=== PATIENT | male | born 1965 | race Caucasian/White ===

== ENCOUNTER → 2016-07-18 | Outpatient (CLI) | payer OTHER ==
[2016-03-06 22:57] VITALS: BP 184/86
--- NOTE | 2016-07-18 12:25 | MRI ---
STUDY: MRI OF THE BRAIN WITHOUT GADOLINIUM HISTORY: Cerebral infarction, TIA. Dizziness and right-sided facial numbness. Technique: Multiplanar multi-sequence MRI of the brain was obtained utilizing standard departmental protocol. Sagittal and axial T1, axial T2, FLAIR, diffusion (DWI/ADC) images through the brain were performed. Comparison: Brain MRI dated February 25, 2013. Findings: The sulci, cisterns and ventricles are prominent consistent with diffuse volume loss. There are conf luent and scattered foci of T2 prolongation in the periventricular and subcortical white matter of b oth hemispheres. This is a nonspecific finding which likely represents microangiopathic change in a patient of this age. There is no evidence of acute territorial infarction, hemorrhage, mass, mass effect, or midline shif t. There are no abnormal intra-axial or extra-axial fluid collections. The major intracranial vascular flow voids appear intact. The left vertebral artery appears dominant . IMPRESSION: 1. No evidence of acute intracranial abnormality. 2. Nonspecific white matter change and volume loss. Reported By:
== END ==
LOC: RAD 10:29
PROVIDERS: ATTEND Internal Medicine
DX: I63.8 Other cerebral infarction (principal); R42 Dizziness and giddiness; G45.8 Other transient cerebral ischemic attacks and related syndromes
CPT/HCPCS: 70551

== ENCOUNTER 2016-12-30 05:42 | Emergency (ER) | payer OTHER ==
[2016-12-30 05:50] VITALS: BP 180/94; BMI 39.4
--- NOTE | 2016-12-30 06:31 | RAD ---
Two views of the left knee Indication: Left knee pain after fall with swelling Findings: Posttraumatic deformities of the proximal tibia and fibula are noted without hardware comp lication identified within the lateral fixation plate and screw construct within the proximal tibia. Chronic, healed fracture deformity of the proximal left fibula. There is mild soft tissue swelling anterior to the knee suggesting contusion. There is no acute fracture, dislocation or suprapatellar joint effusion. There is mild tricompartmental osteoarthrosis. Calcified atherosclerotic disease is noted within the SFA and popliteal artery and tibioperoneal trunk. Impression: Mild tricompartmental osteoarthrosis without acute fracture, dislocation or joint effusi on. Small prepatellar soft tissue swelling/contusion. Reported By:
--- NOTE | 2016-12-30 06:40 | RAD ---
Two views of the left lower leg Indication: Leg pain after fall. Findings: No acute fracture or dislocation within the left foreleg. Internally fixated healed fracture of the proximal left tibia is noted without evidence of hardware c omplication or failure. There is also a healed fracture deformity of the proximal fibular diaphysis without internal fixation. Calcified atherosclerotic disease of the SFA, popliteal artery and tibiop eroneal trunk. Left knee and ankle joint alignment are grossly intact. No localizing soft tissue sw elling. Impression: No acute radiographic abnormality within the left foreleg. Reported By:
--- NOTE | 2016-12-30 06:40 | DR.GENAD ---
HPI - PCP Primary Care Physician: gerber - Complaint/Symptoms Chief Complaint Doctors Comments: Patient with repaired left left lower extremity with kaci placement. He fell today on the left knee with possible damage to the patella. Chief Complaint:: PT FELL ON LEFT KNEE - Source History Provided: Patient - Mode of Arrival Mode of Arrival: Wheelchair - Timing Onset of Chief Complaint: 12/30/16 PMH - PMH Past Medical History: Yes Past Medical History: Coronary Artery Disease, Diabetes, Hypertension, Hypothyroidism Past Surgical History: Yes Surgical History: Abdominal Surgery, CABG/Valve Surgery, Ortho Surgery - Family History History of Family Medical Conditions: Yes Family Medical History: Diabetes Mellitus, [place], Coronary Artery Disease, Hypertension - Social History Does patient currently use any type of tobacco product: No Have you used tobacco products in the last 12 months: No Type of Tobacco Use: Cigarettes Does any household member use tobacco: No Alcohol Use: None Do you use any recreational Drugs:: No Lives With: Family Lives Where: Home - infectious screening In the last 2 months have you had wt loss of >10#?: NO Have you had fever, night sweats or hemotysis?: No Have you traveled outside the country in the last 6 months?: No Isolation: Standard ROS - Review of Systems Constitutional: negative: Diaphoresis Eyes: No Symptoms Reported ENTM: No Symptoms Reported Respiratoy: No Symptoms Reported Cardiovascular: No Symptoms Reported Gastrointestinal/Abdominal: No Symptoms Reported Genitourinary: No Symptoms Reported Neurological: No Symptoms Reported Musculoskeletal: No Symptoms Reported Integumentary: No Symptoms Reported Hematologic/Lymphatic: No Symptoms Reported Endocrine: No Symptoms Reported Psychiatric: No Symptoms Reported All Other Systems: Reviewed and Negative PE - Vital Signs Vitals: Temperature 98.2 F Pulse Rate 69 Respiratory Rate 16 Blood Pressure [Right Arm] 184/86 Blood Pressure [Left Arm] 127/58 Blood Pressure 180/94 O2 Sat by Pulse Oximetry 100 - General Limitations: No Limitations General Appearance: Alert, In No Apparent Distress - Head Head Exam: Normal Inspection, Atraumatic - Eyes Eye exam: Normal Appearance, PERRL, EOMI - ENT ENT Exam: Normal Exam External Ear Exam: Normal External Inspection TM/Canal Exam: Bilateral Normal Nose Exam: Normal Nose Exam Mouth Exam: Normal Inspection Throat Exam: Normal Inspection - Neck Neck Exam: Normal Inspection, Full ROM - Chest Chest Inspection: Normal Inspection - Respiratory Respiratory Exam: Normal Lung Sounds Bilat Respiratory Exam: Bilateral Clear to Auscultation - Cardiovascular Cardiovascular Exam: Regular Rate, Normal Rhythm - Abdominal Exam Abdominal Exam: Normal Inspection, Normal Bowel Sounds Abdominal Tenderness: negative: RUQ, RLQ, LUQ, LLQ, Epigastrium, Suprapubic, Diffuse, Mild, Moderate, Severe, Other - Extremities Extremities Exam: Other (left patella with area of excoriation minimal edema) - Back Back Exam: Normal Inspection - Neurologic Neurological Exam: Alert, Oriented X3, CN II-XII Intact - Psychiatric Psychiatric Exam: Normal Affect - Skin Skin Exam: Warm, Dry, Intact ROR - XRAY XRAY Interpreted by: Radiologist (Left Knee: Mild tricompartmental osteoarthrosis without acute fracture, dislocation or joint effusion, small patella contusion) - Diagnosis Discharge Problem: Contusion of left patella Qualifiers: Encounter type: initial encounter Qualified Code(s): S80.02XA - Contusion of left knee, initial encounter - Discharge Plan Condition: Stable - Follow ups/Referrals Follow ups/Referrals: Buzz Lamar [Primary Care Provider] - 3 days - Instructions
== END 2016-12-30 07:25 | disposition home or self-care (01) ==
LOC: ER 05:42
DX: S80.02XA Contusion of left knee, initial encounter (principal); W19.XXXA Unspecified fall, initial encounter; Y92.9 Unspecified place or not applicable
CPT/HCPCS: 73560; 73590; 99282

== ENCOUNTER → 2017-03-20 | Outpatient (CLI) | payer OTHER ==
[2017-03-20 09:00] LABS: BASOPHILS % (AUTO) 0.2 % (0.2-1.0); EOSINOPHILS # (AUTO) 0.8 x10^3/uL (0.0-0.2); EOSINOPHILS % (AUTO) 7.7 % (0.9-2.9); HEMATOCRIT 34.1 % (42.0-54.0); HEMOGLOBIN 12.1 g/dL (13.5-18.0); LYMPHOCYTES # (AUTO) 2.7 X10^3/uL (1.3-2.9); LYMPHOCYTES % (AUTO) 25.8 % (21.0-51.0); MEAN CORPUSCULAR HEMOGLOBIN 30.1 pg (27.0-34.0); MEAN CORPUSCULAR HGB CONC 35.5 g/dL (33.0-35.0); MEAN CORPUSCULAR VOLUME 84.9 fL (80.0-100.0); MEAN PLATELET VOLUME 9.1 fL (7.4-11.0); MONOCYTES % (AUTO) 10.1 % (0.0-13.0); NEUTROPHILS # (AUTO) 5.8 x10^3/uL (2.2-4.8); NEUTROPHILS % (AUTO) 56.2 % (42.0-75.0); PLATELET COUNT 264 X10^3/uL (150.0-450.0); RED BLOOD COUNT 4.01 X10^6/uL (4.7-6.0); RED CELL DISTRIBUTION WIDTH 12.9 % (11.6-16.5); WHITE BLOOD COUNT 10.4 X10^3/uL (3.6-10.0)
[2017-03-20 09:20] LABS: HEMOGLOBIN A1C 7.1 % (4.5-6.2)
[2017-03-20 09:26] LABS: ALANINE AMINOTRANSFERASE 26 Units/L (12-78); ALBUMIN 3.7 g/dL (3.4-5.0); ALKALINE PHOSPHATASE 45 Units/L (46-116); ASPARTATE AMINO TRANSFERASE 12 Units/L (15-37); BLOOD UREA NITROGEN 14 mg/dL (7-18); CALCIUM 8.7 mg/dL (8.5-10.1); CARBON DIOXIDE 26.8 mmol/L (21-32); CHLORIDE 103 mmol/L (98-107); CHOL/HDL RATIO 4.6 (0.0-5.0); CHOLESTEROL 156 mg/dL (0-200); COR NA(FOR HYPERGLY) 142 mmol/L (136-145); CREATININE 1.36 mg/dL (0.70-1.30); HDL CHOLESTEROL 34 mg/dL (40-60); SODIUM 140 mmol/L (136-145); T4 (THYROXINE) 6.1 ug/dL (4.7-13.3); TOTAL PROTEIN 7.3 g/dL (6.4-8.2); TRIGLYCERIDES 183 mg/dL (0-150); TSH (3RD GENERATION) 5.116 uIU/mL (0.358-3.74); eGFR BLACK RACES > 60 (>60); eGFR NON BLACK RACES 58 (>60)
[2017-03-20 09:32] LABS: TOTAL PSA 0.81 ng/mL (0.13-4.0)
== END ==
LOC: LAB 08:32
PROVIDERS: ATTEND Internal Medicine
DX: Z12.5 Encounter for screening for malignant neoplasm of prostate (principal); E11.9 Type 2 diabetes mellitus without complications; I10 Essential (primary) hypertension
CPT/HCPCS: 36415; 80053; 80061; 83036; 84153; 84436; 84443; 85025

== ENCOUNTER 2023-03-29 20:13 | Inpatient (IN) ==
[2023-03-29 20:34] VITALS: BMI 27.6
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
--- NOTE | 2023-03-29 20:56 | EKG ---
Test Reason : Shortness of Breath. Blood Pressure : */* mmHG Vent. Rate : 71 BPM Atrial Rate : 71 BPM P-R Int : 196 ms QRS Dur : 98 ms QT Int : 414 ms P-R-T Axes : 21 -21 171 degrees QTc Int : 449 ms Normal sinus rhythm Possible Left atrial enlargement Incomplete right bundle branch block Minimal voltage criteria for LVH, may be normal variant ( [place] product ) Marked ST abnormality, possible lateral subendocardial injury Abnormal ECG No previous ECGs available Confirmed by Jossue Barba ([id number]) on 03/31/2023 9:04:25 AM Referred By: Confirmed By: Jossue Barba
[2023-03-29 21:01] LABS: BASOPHILS # (AUTO) 0.1 X10^3/uL (0.0-0.1); BASOPHILS % (AUTO) 1.1 % (0.2-1.0); EOSINOPHILS # (AUTO) 0.4 x10^3/uL (0.0-0.2); EOSINOPHILS % (AUTO) 3.9 % (0.9-2.9); HEMATOCRIT 34.8 % (42.0-54.0); HEMOGLOBIN 11.3 g/dL (13.5-18.0); LYMPHOCYTES # (AUTO) 1.3 X10^3/uL (1.3-2.9); MEAN CORPUSCULAR HEMOGLOBIN 27.9 pg (27.0-34.0); MEAN CORPUSCULAR HGB CONC 32.5 g/dL (33.0-35.0); MONOCYTES # (AUTO) 0.9 x10^3/uL (0.3-0.8); MONOCYTES % (AUTO) 10.1 % (0.0-13.0); NEUTROPHILS # (AUTO) 6.3 x10^3/uL (2.2-4.8); NEUTROPHILS % (AUTO) 69.9 % (42.0-75.0); PLATELET COUNT 211 X10^3/uL (150.0-450.0); RED BLOOD COUNT 4.04 X10^6/uL (4.7-6.0); RED CELL DISTRIBUTION WIDTH 13.5 % (11.6-16.5)
--- NOTE | 2023-03-29 21:13 | CT ---
EXAM:BRAIN W/O CONHISTORY:C/O SHORTNESS OF BREATH AND WEAKNESS X 3-4 DAYS. PT NOTED TO HAVE SLURRED SPEECH, LEFT EYE AND MOUTH DROOPING, AND LEFT ARM DRIFT. ;COMPARISON:NoneTECHNIQUE:CT scan of the brain was obtained from skull base to vertex without contrast. Dose reduction techniques were utilized.Contrast: NoneFINDINGS:There is diffuse cerebral and cerebellar volume loss. There are focal lucencies to the right thalamus. These represent age-indeterminate lacunar infarcts. There is moderate to extensive periventricular, supraventricular and subcortical hypodensity in the hemispheric white matter. There are cavitated lacunar infarcts of the right thalamus capsular region and left putamen. There is ex vacuo dilatation of the left temporal horn. While these are nonspecific findings, this most likely represents microvascular ischemic disease changes. There is no evidence of intracranial hemorrhage or mass-effect. No extra-axial fluid collections are identified.There are extensive atherosclerotic changes noted of the cavernous carotid arteriesand distal vertebral arteries.Skull base and calvarium are intact. Paranasal sinuses are clear.IMPRESSION:Age-indeterminate right thalamic infarcts. If acute ischemia and infarction is of concern a better study of choice is an MRI with diffusion-weighted imaging. Diffuse generalized cerebral atrophy. Extensive microvascular ischemic disease changes. Chronic appearing cavitated lacunar infarcts of the right thalamus capsular region.THIS IS AN ELECTRONICALLY VERIFIED FINAL REPORT03/29/2023 9:09 PM - Electronically signed by Kavita Govea MD
[2023-03-29 21:27] LABS: ALANINE AMINOTRANSFERASE 27 Units/L (12-78); ALBUMIN 3.7 g/dL (3.4-5.0); ALKALINE PHOSPHATASE 45 Units/L (46-116); ASPARTATE AMINO TRANSFERASE 27 Units/L (15-37); BLOOD UREA NITROGEN 33 mg/dL (7-18); CALCIUM 8.4 mg/dL (8.5-10.1); CARBON DIOXIDE 24.7 mmol/L (21-32); CHLORIDE 101 mmol/L (98-107); CREATINE KINASE 67 Units/L (39-308); CREATININE 2.32 mg/dL (0.70-1.30); GLUCOSE 104 mg/dL (65-99); POTASSIUM 4.5 mmol/L (3.5-5.1); SODIUM 135 mmol/L (136-145); TOTAL PROTEIN 7.1 g/dL (6.4-8.2); eGFR NON BLACK RACES 31 (>60)
[2023-03-29 22:26] LABS: BILIRUBIN,URINE NEGATIVE (NEGATIVE); BLOOD/HEMOGLOBIN,URINE 1+ (NEGATIVE); GLUCOSE, URINE NEGATIVE (NEGATIVE); KETONES,URINE NEGATIVE (NEGATIVE); LEUKOCYTE ESTERASE ,URINE NEGATIVE (NEGATIVE); NITRITES,URINE NEGATIVE (NEGATIVE); PROTEIN,URINE 3+ (NEGATIVE); UROBILINOGEN,URINE 1+ (NORMAL)
[2023-03-29 22:29] LABS: APPEARANCE,URINE CLEAR (CLEAR); COLOR,URINE DARK YELLOW (YELLOW)
[2023-03-29 22:37] LABS: BACTERIA,URINE 1+ /HPF (NEGATIVE); COARSE GRANULAR CASTS,URINE FEW /HPF (NEGATIVE); HYALINE CASTS, URINE MODERATE /LPF (NEGATIVE); SQUAMOUS EPITHELIAL CELL,UR FEW /HPF (NEGATIVE)
--- NOTE | 2023-03-29 22:52 | EKG ---
Test Reason : ELEVATED TROPONIN Blood Pressure : */* mmHG Vent. Rate : 76 BPM Atrial Rate : 76 BPM P-R Int : 192 ms QRS Dur : 98 ms QT Int : 406 ms P-R-T Axes : 34 -30 184 degrees QTc Int : 456 ms Normal sinus rhythm Left axis deviation Minimal voltage criteria for LVH, may be normal variant ( [place] product ) Abnormal ECG When compared with ECG of 29-MAR-2023 20:52, (Unconfirmed) No significant change was found Confirmed by Jossue Barba ([id number]) on 03/31/2023 9:04:18 AM Referred By: Confirmed By: Jossue Barba
[2023-03-29] MEDS ORDERED: LASIX IVP ONE ×2 (23:22→23:23)
[2023-03-29 23:53] LABS: BILIRUBIN,URINE NEGATIVE (NEGATIVE); BLOOD/HEMOGLOBIN,URINE NEGATIVE (NEGATIVE); GLUCOSE, URINE NEGATIVE (NEGATIVE); KETONES,URINE NEGATIVE (NEGATIVE); LEUKOCYTE ESTERASE ,URINE NEGATIVE (NEGATIVE); NITRITES,URINE NEGATIVE (NEGATIVE); PROTEIN,URINE 3+ (NEGATIVE); UROBILINOGEN,URINE 1+ (NORMAL)
[2023-03-30] LABS: APPEARANCE,URINE CLEAR (CLEAR); COLOR,URINE DARK YELLOW (YELLOW)
[2023-03-30 00:01] LABS: BACTERIA,URINE TRACE /HPF (NEGATIVE); RBC,URINE 0-2 /HPF (0-3); SQUAMOUS EPITHELIAL CELL,UR RARE /HPF (NEGATIVE)
[2023-03-30 00:02] LABS: HYALINE CASTS, URINE MODERATE /LPF (NEGATIVE)
--- NOTE | 2023-03-30 00:02 | RAD ---
EXAM:CHEST, 1 VIEWHISTORY:C/O SHORTNESS OF BREATH AND WEAKNESS X 3-4 DAYS. PT NOTED TO HAVE SLURRED SPEECH, LEFT EYE AND MOUTH DROOPING, AND LEFT ARM DRIFT. ;COMPARISON:None.TECHNIQUE:A single frontal view of the chest was obtained.FINDINGS:There are multiple EKG leads and wires seen overlying the patient. The patient is status post median sternotomy. There is moderate cardiomegaly with left ventricular hypertrophy. There is hazy density to the lower lobes bilaterally suggestive of pulmonary edema. There is no effusion. There is no pneumothorax. The osseous structures are intact.IMPRESSION:Moderate to severe cardiomegaly with mild pulmonary edema.Status post median sternotomy.THIS IS AN ELECTRONICALLY VERIFIED FINAL REPORT03/29/2023 11:59 PM - Electronically signed by Kavita Govea MD
--- NOTE | 2023-03-30 01:33 | EKG ---
Test Reason : ELEVATED TROPONIN Blood Pressure : */* mmHG Vent. Rate : 77 BPM Atrial Rate : 77 BPM P-R Int : 180 ms QRS Dur : 102 ms QT Int : 390 ms P-R-T Axes : 57 -17 171 degrees QTc Int : 441 ms Normal sinus rhythm Possible Left atrial enlargement Incomplete right bundle branch block Left ventricular hypertrophy with repolarization abnormality ( [place] product ) Abnormal ECG When compared with ECG of 29-MAR-2023 22:49, (Unconfirmed) ST now depressed in Anterior leads Confirmed by Jhon Walden MD ([id number]) on 03/30/2023 8:59:55 AM Referred By: Confirmed By: Jhon Walden MD
[2023-03-30 05:33] LABS: BASOPHILS # (AUTO) 0.1 X10^3/uL (0.0-0.1); BASOPHILS % (AUTO) 1.1 % (0.2-1.0); EOSINOPHILS # (AUTO) 0.4 x10^3/uL (0.0-0.2); EOSINOPHILS % (AUTO) 3.9 % (0.9-2.9); HEMATOCRIT 32.9 % (42.0-54.0); HEMOGLOBIN 10.7 g/dL (13.5-18.0); LYMPHOCYTES # (AUTO) 1.4 X10^3/uL (1.3-2.9); LYMPHOCYTES % (AUTO) 12.9 % (21.0-51.0); MEAN CORPUSCULAR HEMOGLOBIN 28.1 pg (27.0-34.0); MEAN CORPUSCULAR HGB CONC 32.7 g/dL (33.0-35.0); MEAN PLATELET VOLUME 10.2 fL (7.4-11.0); MONOCYTES % (AUTO) 9.3 % (0.0-13.0); NEUTROPHILS # (AUTO) 7.7 x10^3/uL (2.2-4.8); NEUTROPHILS % (AUTO) 72.8 % (42.0-75.0); PLATELET COUNT 227 X10^3/uL (150.0-450.0); RED BLOOD COUNT 3.82 X10^6/uL (4.7-6.0); RED CELL DISTRIBUTION WIDTH 13.3 % (11.6-16.5); WHITE BLOOD COUNT 10.6 X10^3/uL (3.6-10.0)
[2023-03-30 05:50] LABS: ALANINE AMINOTRANSFERASE 48 Units/L (12-78); ALBUMIN 3.6 g/dL (3.4-5.0); ALKALINE PHOSPHATASE 41 Units/L (46-116); ASPARTATE AMINO TRANSFERASE 56 Units/L (15-37); BLOOD UREA NITROGEN 36 mg/dL (7-18); CALCIUM 8.6 mg/dL (8.5-10.1); CARBON DIOXIDE 20.2 mmol/L (21-32); CHLORIDE 101 mmol/L (98-107); CREATININE 2.36 mg/dL (0.70-1.30); GLUCOSE 103 mg/dL (65-99); POTASSIUM 4.5 mmol/L (3.5-5.1); SODIUM 135 mmol/L (136-145); TOTAL PROTEIN 7.1 g/dL (6.4-8.2); eGFR NON BLACK RACES 30 (>60)
[2023-03-30] MEDS ORDERED: ZESTRIL TAB 40 MG PO SCH (09:00)
[2023-03-30] MEDS ORDERED: LASIX IVP SCH (09:00)
[2023-03-30] MEDS: LOPRESSOR TAB 50 MG PO SCH ×2 (09:35→21:21)
[2023-03-30] MEDS: APRESOLINE INJ 20 MG VIAL IVP PRN ×2 (09:35→17:43)
[2023-03-30] MEDS ORDERED: NORCO 10/325 TAB PO PRN (11:47)
--- NOTE | 2023-03-30 12:00 | DR.H&P ---
H&P History & Physical for Day of: H&P Date: 03/30/23 Chief Complaint Chief Complaint: dyspnea, weakness Allergies Allergies Allergy/AdvReac Type Severity Reaction Status Date / Time morphine Allergy Verified 03/29/23 20:34 History of Present Illness History of Present Illness: Mr Anderson is a 58y/o male with a PMH of CAD s/p CABG, seizures, HTN, HLD presented with worsening dyspnea and weakness. He reports feeling SOB with exertion for the past week. He was also noted to have slurred speech and facial droop yesterday. Patient is a very poor historian. His is currently in a intermediate and was present on the phone. She reports he has been having changes in memory and increase fatigue. He does not see cardiology. In the ER, CT-head showed Age-indeterminate right thalamic infarcts. Chronic lacunar infarcts. CXR showed cardiomegaly and pulmonary edema. BNP elevated at 3580. Patient was admitted for further observation and management. He was given IV lasix and monitored with neuro checks. His speech seems to be at baseline and facial droop is almost resolved. He reports improvement in breathing and LE swelling. He is not aware of having a stroke in the past. Labs/imaging reviewed - CT-head and CXR: see scanned results - Labs Hgb 10.7 BNP 3580 Troponin: 119,113,107. BUN/Cr 36/2.36 Plan: Continue telemetry and IV lasix 40 mg daily. Monitor I/Os and daily weights. Resume home medications. Hold nephrotoxic medications. Add hydralazine prn. Order ECHO and MRI-brain to assess further. Continue neuro checks. Patient is currently on room air and does not appear to be in any distress. Monitor AM labs/imaging. Time spend for clinical assessment, reviewing labs/imaging, physical exam, decision making and documentation greater than 45 mins. Past Medical History Past Medical History: Coronary Artery Disease, Diabetes, Dyslipidemia, Hypertension, Hypothyroidism and Seizures Past Surgical History Surgical History: CABG/Valve Surgery Family History Family Medical History: Diabetes Mellitus, Cancer, [place], Coronary Artery Disease, Heart Failure, Sudden Cardiac and Hypertension Social History Does patient currently use any type of tobacco product: Yes Have you used tobacco products in the last 12 months: Yes Type of Tobacco Use: Smokeless Does any household member use tobacco: No Alcohol Use: None Drug Use: None Medications Home Medications: Home Medications Medication Instructions Recorded Confirmed Type Alprazolam [Xanax] 1 mg PO TID PRN Anxiety 11/16/11 03/30/23 History Hydrocodone-Acetaminophen [Lortab] 1 tab PO TID PRN Pain 11/16/11 03/30/23 History Lisinopril 40 mg PO DAILY 11/16/11 03/30/23 History Metformin HCl 1,000 mg PO BID 11/16/11 03/30/23 History Metoclopramide HCl [Reglan] 10 mg PO BID 11/16/11 03/30/23 History simvastatin 40 mg tablet (Zocor) 40 mg PO HS 11/16/11 03/30/23 History Metoprolol Tartrate [Lopressor] 50 mg PO BID 12/29/11 03/30/23 History insulin detemir U-100 100 unit/mL 34 units SC DAILY 01/02/12 03/30/23 History subcutaneous solution (Levemir U-100 Insulin) Insulin Aspart [NovoLog insulin 10 0 inj SUBCUT PER PROTOCOL 02/24/13 03/30/23 History mL vial] aspirin 81 mg tablet,delayed 81 mg PO HS 02/24/13 03/30/23 History release (Aspir-Low) venlafaxine 150 mg 150 mg PO DAILY 02/24/13 03/30/23 History capsule,extended release 24 hr zolpidem 10 mg tablet 10 mg PO HS PRN Sleep 02/24/13 03/30/23 History Labs 03/30/23 04:55 03/30/23 04:55 Labs: Laboratory WBC 10.6 X10^3/uL (3.6-10.0) H 03/30/23 04:55 RBC 3.82 X10^6/uL (4.7-6.0) L 03/30/23 04:55 Hgb 10.7 g/dL (13.5-18.0) L 03/30/23 04:55 Hct 32.9 % (42.0-54.0) L 03/30/23 04:55 MCV 86.0 fL (80.0-100.0) 03/30/23 04:55 MCH 28.1 pg (27.0-34.0) 03/30/23 04:55 MCHC 32.7 g/dL (33.0-35.0) L 03/30/23 04:55 RDW 13.3 % (11.6-16.5) 03/30/23 04:55 Plt Count 227 X10^3/uL (150.0-450.0) 03/30/23 04:55 MPV 10.2 fL (7.4-11.0) 03/30/23 04:55 Neut % (Auto) 72.8 % (42.0-75.0) 03/30/23 04:55 Lymph % (Auto) 12.9 % (21.0-51.0) L 03/30/23 04:55 [place] % (Auto) 9.3 % (0.0-13.0) 03/30/23 04:55 Eos % (Auto) 3.9 % (0.9-2.9) H 03/30/23 04:55 Baso % (Auto) 1.1 % (0.2-1.0) H 03/30/23 04:55 Neut # (Auto) 7.7 x10^3/uL (2.2-4.8) H 03/30/23 04:55 Lymph # (Auto) 1.4 X10^3/uL (1.3-2.9) 03/30/23 04:55 [place] # (Auto) 1.0 x10^3/uL (0.3-0.8) H 03/30/23 04:55 Eos # (Auto) 0.4 x10^3/uL (0.0-0.2) H 03/30/23 04:55 Baso # (Auto) 0.1 X10^3/uL (0.0-0.1) 03/30/23 04:55 Absolute Nucleated RBC 0.0 /100WBC 03/30/23 04:55 PT 15.0 SECONDS (11.8-14.3) 03/29/23 20:50 INR Target Range - 03/29/23 20:50 INR 1.20 (0.8-1.3) 03/29/23 20:50 APTT 27.7 SECONDS (22.9-36.5) 03/29/23 20:50 PTT Comment - 03/29/23 20:50 Sodium 135 mmol/L (136-145) L 03/30/23 04:55 Corrected Sodium TNP 03/30/23 04:55 Potassium 4.5 mmol/L (3.5-5.1) 03/30/23 04:55 Chloride 101 mmol/L (98-107) 03/30/23 04:55 Carbon Dioxide 20.2 mmol/L (21-32) L 03/30/23 04:55 BUN 36 mg/dL (7-18) H 03/30/23 04:55 Creatinine 2.36 mg/dL (0.70-1.30) H 03/30/23 04:55 Est GFR (MDRD) Af Amer 37 (>60) L 03/30/23 04:55 Est GFR (MDRD) Non-Af 30 (>60) L 03/30/23 04:55 Glucose 103 mg/dL (65-99) H 03/30/23 04:55 POC Glucose (mg/dL) 143 mg/dL (65-99) H 03/30/23 11:34 Calcium 8.6 mg/dL (8.5-10.1) 03/30/23 04:55 Corrected Calcium TNP 03/30/23 04:55 Total Bilirubin 0.50 mg/dL (0.2-1.0) 03/30/23 04:55 AST 56 Units/L (15-37) H 03/30/23 04:55 ALT 48 Units/L (12-78) 03/30/23 04:55 Alkaline Phosphatase 41 Units/L (46-116) L 03/30/23 04:55 Creatine Kinase 67 Units/L (39-308) 03/30/23 01:25 Troponin I High Sens 107.3 ng/L (4.0-60.0) H* 03/30/23 01:25 B-Natriuretic Peptide 3580 pg/mL (0-79) H 03/29/23 20:50 Total Protein 7.1 g/dL (6.4-8.2) 03/30/23 04:55 Albumin 3.6 g/dL (3.4-5.0) 03/30/23 04:55 Globulin 3.5 g/dL (2.5-4.5) 03/30/23 04:55 Albumin/Globulin Ratio 1.0 Ratio (1.1-2.1) L 03/30/23 04:55 Specimen Type Catherized urine 03/29/23 23:46 Urine Color Dark yellow (YELLOW) 03/29/23 23:46 Urine Appearance Clear (CLEAR) 03/29/23 23:46 Urine pH 5.0 (5.0 - 8.0) 03/29/23 23:46 Ur Specific [place] 1.025 (1.000-1.030) 03/29/23 23:46 Urine Protein 3+ (NEGATIVE) 03/29/23 23:46 Urine Glucose (UA) Negative (NEGATIVE) 03/29/23 23:46 Urine Ketones Negative (NEGATIVE) 03/29/23 23:46 Urine Blood Negative (NEGATIVE) 03/29/23 23:46 Urine Nitrite Negative (NEGATIVE) 03/29/23 23:46 Urine Bilirubin Negative (NEGATIVE) 03/29/23 23:46 Urine Urobilinogen 1+ (NORMAL) 03/29/23 23:46 Ur Leukocyte Esterase Negative (NEGATIVE) 03/29/23 23:46 Urine RBC 0-2 /HPF (0-3) 03/29/23 23:46 Urine WBC 0-2 /HPF (0-5) 03/29/23 23:46 Ur Squamous Epith Cells Rare /HPF (NEGATIVE) 03/29/23 23:46 Amorphous Sediment Trace /HPF (NEGATIVE) 03/29/23 23:46 Urine Bacteria Trace /HPF (NEGATIVE) 03/29/23 23:46 Hyaline Casts Moderate /LPF (NEGATIVE) 03/29/23 23:46 Coarse Granular Casts Few /HPF (NEGATIVE) 03/29/23 22:16 Urine Mucus Few /HPF (NEGATIVE) 03/29/23 23:46 Ur Culture Indicated? No/not indicated 03/29/23 23:46 Urine Opiates Screen Negative (NEG=<300) 03/29/23 22:16 Urine Methadone Screen Negative (NEG=<300) 03/29/23 22:16 Ur Barbiturates Screen Negative (NEG=<200) 03/29/23 22:16 Phenytoin 3.5 ug/mL (10-20) L 03/29/23 20:50 Ur Phencyclidine Scrn Negative (NEG=<25) 03/29/23 22:16 Ur Amphetamines Screen Negative (NEG=<1000) 03/29/23 22:16 U Benzodiazepines Scrn Positive (NEG=<200) 03/29/23 22:16 Urine Cocaine Screen Negative (NEG=<300) 03/29/23 22:16 U Marijuana (THC) Screen Negative (NEG=<50) 03/29/23 22:16 SARS-CoV-2 (PCR) Negative (NEGATIVE) 03/29/23 21:50 Influenza Type A (PCR) Negative (NEGATIVE) 03/29/23 21:50 Influenza Type B (PCR) Negative (NEGATIVE) 03/29/23 21:50 RSV (PCR) Negative (NEGATIVE) 03/29/23 21:50 Review of Systems Constitutional: Weakness Respiratory: Shortness of Breath Cardiovascular: No Symptoms Reported Gastrointestinal: No Symptoms Reported Musculoskeletal: No Symptoms Reported Skin: No Symptoms Reported Neurological: Weakness and Change in Speech Physical Exam Vital Signs: Vital Signs Temperature 98.1 F Temperature 97.7 F Pulse Rate [Left] 92 Pulse Rate [Left] 83 Respiratory Rate 20 Respiratory Rate 20 Blood Pressure [Right Arm] 177/109 Blood Pressure [Right Arm] 172/75 O2 Sat by Pulse Oximetry 98 O2 Sat by Pulse Oximetry 100 Oriented: Normal Throat: Normal Respiratory: Diminished Throughout, RLL Rales and LLL Rales Cardiovascular: Normal Auscultation: Bowel Sounds: Normal Palpation: Normal Tenderness: Normal Skin: Normal Musculoskeletal: Normal Psychiatric: Normal Mood Description: Calm Affect: Normal Speech Pattern: Clear and Appropriate Assessment/Plan (1) CHF exacerbation: Qualifiers: Heart failure type: unspecified Qualified Code(s): I50.9 - Heart failure, unspecified Status: Acute (2) Acute kidney injury superimposed on CKD: Status: Acute (3) Chronic cerebrovascular accident (CVA): Status: Acute (4) Seizure: Qualifiers: Convulsion type: unspecified Qualified Code(s): R56.9 - Unspecified convulsions Status: Acute (5) Essential hypertension: Status: Acute (6) CAD (coronary atherosclerotic disease): Qualifiers: Associated angina: without angina Coronary Disease-Associated Artery/Lesion type: bypass graft, other Qualified Code(s): I25.810 - Atheroscle rosis of coronary artery bypass graft(s) without angina pectoris Status: Acute (7) Diabetes type 2, controlled: Qualifiers: Chronic kidney disease stage: unspecified stage Diabetes mellitus complication detail: with chronic kidney disease Diabetes mellitus complication status: with kidney complications Diabetes mellitus prison insulin use: with prison use Qualified Code(s): E11.22 - Type 2 diabetes mellitus with diabetic chronic kidney disease; 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
[2023-03-30] MEDS: XANAX PO PRN (17:42)
[2023-03-30] MEDS: DILANTIN CAP 100 MG EXT REL PO SCH (21:21)
[2023-03-30] MEDS: ASPIRIN EC 81 MG PO SCH (21:21)
[2023-03-30] MEDS: ZOCOR TAB 40 MG PO SCH (21:21)
[2023-03-31 05:21] LABS: BASOPHILS # (AUTO) 0.1 X10^3/uL (0.0-0.1); BASOPHILS % (AUTO) 1.2 % (0.2-1.0); EOSINOPHILS # (AUTO) 0.3 x10^3/uL (0.0-0.2); EOSINOPHILS % (AUTO) 4.3 % (0.9-2.9); HEMATOCRIT 34.1 % (42.0-54.0); HEMOGLOBIN 11.2 g/dL (13.5-18.0); LYMPHOCYTES % (AUTO) 13.7 % (21.0-51.0); MEAN CORPUSCULAR HEMOGLOBIN 27.9 pg (27.0-34.0); MEAN CORPUSCULAR HGB CONC 32.9 g/dL (33.0-35.0); MEAN CORPUSCULAR VOLUME 84.8 fL (80.0-100.0); MONOCYTES # (AUTO) 0.8 x10^3/uL (0.3-0.8); MONOCYTES % (AUTO) 10.9 % (0.0-13.0); NEUTROPHILS # (AUTO) 5.3 x10^3/uL (2.2-4.8); NEUTROPHILS % (AUTO) 69.9 % (42.0-75.0); PLATELET COUNT 211 X10^3/uL (150.0-450.0); RED BLOOD COUNT 4.03 X10^6/uL (4.7-6.0); RED CELL DISTRIBUTION WIDTH 13.5 % (11.6-16.5); WHITE BLOOD COUNT 7.6 X10^3/uL (3.6-10.0)
[2023-03-31 05:33] LABS: ALANINE AMINOTRANSFERASE 117 Units/L (12-78); ALBUMIN 3.6 g/dL (3.4-5.0); ALKALINE PHOSPHATASE 43 Units/L (46-116); ASPARTATE AMINO TRANSFERASE 131 Units/L (15-37); BLOOD UREA NITROGEN 32 mg/dL (7-18); CALCIUM 8.4 mg/dL (8.5-10.1); CARBON DIOXIDE 25.7 mmol/L (21-32); CHLORIDE 99 mmol/L (98-107); COR NA(FOR HYPERGLY) 136 mmol/L (136-145); CREATININE 1.99 mg/dL (0.70-1.30); GLUCOSE 149 mg/dL (65-99); POTASSIUM 3.5 mmol/L (3.5-5.1); SODIUM 135 mmol/L (136-145); TOTAL PROTEIN 7.2 g/dL (6.4-8.2); eGFR NON BLACK RACES 37 (>60)
[2023-03-31] MEDS ORDERED: CONSULT PHARMACY - POTASSIUM & MAGNESIUM XX SCH (07:00)
--- NOTE | 2023-03-31 07:25 | RAD ---
EXAM:AP chestHISTORY:Pulmonary edema short of breathCOMPARISON:03/29/2023FINDINGS:Lorraine lar cardiomegaly with sternal wires. 1 of the upper sternal wires is fractured but not displaced. There is improved aeration of the lungs with decreasing congestion and edema. No new consolidation, pneumothorax or pleural fluid is evident.IMPRESSION:Similar cardiac enlargement. Interval improvement in appearance of the lungs. No localized abnormality is now demonstrated.THIS IS AN ELECTRONICALLY VERIFIED FINAL REPORT03/31/2023 7:22 AM - Electronically signed by Nolan Ramos MD
[2023-03-31] MEDS: LOPRESSOR TAB 50 MG PO SCH ×2 (08:56→20:22)
[2023-03-31] MEDS: LASIX IVP SCH (08:56)
[2023-03-31] MEDS: DILANTIN CAP 100 MG EXT REL PO SCH ×2 (08:57→20:22)
[2023-03-31] MEDS ORDERED: MAG-OX TAB PO SCH (09:00)
[2023-03-31] MEDS ORDERED: MICRO K EXTEN CAP 10 MEQ PO SCH (09:00)
--- NOTE | 2023-03-31 10:23 | PCM.PROG ---
Progress Note Progress Note for Day of Date of Exam: 03/31/23 Subjective Subjective: Patient seen at bedside, no acute events overnight. He is feeling better. He reports improvement in dyspnea. He denies having any focal weakness, speech is back to normal, no facial droop. His CXR did show improvement in pulmonary edema. Labs/imaging reviewed - Hgb 11.2 BUN/Cr 32/1.99 Mag 1.5 Plan: continue IV lasix, monitor I&Os. Echo and MRI-brain ordered for tomorrow. Continue home medications, hold nephrotoxic medications. Replace K and Mag as per protocol. Monitor AM labs/imaging. Past Medical Family Social History Allergies: Allergies morphine Allergy (Verified 03/29/23 20:34) Vital Signs and I&O's Vital Signs: Vital Signs Temperature 98 F Temperature 98 F Pulse Rate [Left] 85 Pulse Rate [Left] 80 Respiratory Rate 18 Respiratory Rate 20 Blood Pressure [Right Arm] 166/77 Blood Pressure [Right Arm] 165/78 O2 Sat by Pulse Oximetry 93 O2 Sat by Pulse Oximetry 97 Intake and Output: Intake & Output 03/28/23 03/29/23 03/30/23 03/31/23 23:59 23:59 23:59 23:59 Intake Total 1192 / 1192 600 / 600 Output Total 3600 / 3600 500 / 500 Balance -2408 / -2408 100 / 100 Physical Exam Oriented: Normal Throat: Normal Respiratory: Generalized and Diminished Cardiovascular: Normal Auscultation: Bowel Sounds: Normal Palpation: Normal Tenderness: Normal Skin: Normal Musculoskeletal: Normal Psychiatric: Normal Mood Description: Calm and Appropriate Affect: Normal Speech Pattern: Clear and Appropriate Laboratory and Diagnostics 03/31/23 04:39 03/31/23 04:39 Labs: Laboratory WBC 7.6 X10^3/uL (3.6-10.0) 03/31/23 04:39 RBC 4.03 X10^6/uL (4.7-6.0) L 03/31/23 04:39 Hgb 11.2 g/dL (13.5-18.0) L 03/31/23 04:39 Hct 34.1 % (42.0-54.0) L 03/31/23 04:39 MCV 84.8 fL (80.0-100.0) 03/31/23 04:39 MCH 27.9 pg (27.0-34.0) 03/31/23 04:39 MCHC 32.9 g/dL (33.0-35.0) L 03/31/23 04:39 RDW 13.5 % (11.6-16.5) 03/31/23 04:39 Plt Count 211 X10^3/uL (150.0-450.0) 03/31/23 04:39 MPV 10.0 fL (7.4-11.0) 03/31/23 04:39 Neut % (Auto) 69.9 % (42.0-75.0) 03/31/23 04:39 Lymph % (Auto) 13.7 % (21.0-51.0) L 03/31/23 04:39 [place] % (Auto) 10.9 % (0.0-13.0) 03/31/23 04:39 Eos % (Auto) 4.3 % (0.9-2.9) H 03/31/23 04:39 Baso % (Auto) 1.2 % (0.2-1.0) H 03/31/23 04:39 Neut # (Auto) 5.3 x10^3/uL (2.2-4.8) H 03/31/23 04:39 Lymph # (Auto) 1.0 X10^3/uL (1.3-2.9) L 03/31/23 04:39 [place] # (Auto) 0.8 x10^3/uL (0.3-0.8) 03/31/23 04:39 Eos # (Auto) 0.3 x10^3/uL (0.0-0.2) H 03/31/23 04:39 Baso # (Auto) 0.1 X10^3/uL (0.0-0.1) 03/31/23 04:39 Absolute Nucleated RBC 0.1 /100WBC 03/31/23 04:39 PT 15.0 SECONDS (11.8-14.3) 03/29/23 20:50 INR Target Range - 03/29/23 20:50 INR 1.20 (0.8-1.3) 03/29/23 20:50 APTT 27.7 SECONDS (22.9-36.5) 03/29/23 20:50 PTT Comment - 03/29/23 20:50 Sodium 135 mmol/L (136-145) L 03/31/23 04:39 Corrected Sodium 136 mmol/L (136-145) 03/31/23 04:39 Potassium 3.5 mmol/L (3.5-5.1) 03/31/23 04:39 Chloride 99 mmol/L (98-107) 03/31/23 04:39 Carbon Dioxide 25.7 mmol/L (21-32) 03/31/23 04:39 BUN 32 mg/dL (7-18) H 03/31/23 04:39 Creatinine 1.99 mg/dL (0.70-1.30) H 03/31/23 04:39 Est GFR (MDRD) Af Amer 45 (>60) L 03/31/23 04:39 Est GFR (MDRD) Non-Af 37 (>60) L 03/31/23 04:39 Glucose 149 mg/dL (65-99) H 03/31/23 04:39 POC Glucose (mg/dL) 143 mg/dL (65-99) H 03/31/23 05:26 Calcium 8.4 mg/dL (8.5-10.1) L 03/31/23 04:39 Corrected Calcium TNP 03/31/23 04:39 Magnesium 1.5 mg/dL (2.0-2.9) L 03/31/23 04:59 Total Bilirubin 0.50 mg/dL (0.2-1.0) 03/31/23 04:39 AST 131 Units/L (15-37) H 03/31/23 04:39 ALT 117 Units/L (12-78) H 03/31/23 04:39 Alkaline Phosphatase 43 Units/L (46-116) L 03/31/23 04:39 Creatine Kinase 67 Units/L (39-308) 03/30/23 01:25 Troponin I High Sens 107.3 ng/L (4.0-60.0) H* 03/30/23 01:25 B-Natriuretic Peptide 3580 pg/mL (0-79) H 03/29/23 20:50 Total Protein 7.2 g/dL (6.4-8.2) 03/31/23 04:39 Albumin 3.6 g/dL (3.4-5.0) 03/31/23 04:39 Globulin 3.6 g/dL (2.5-4.5) 03/31/23 04:39 Albumin/Globulin Ratio 1.0 Ratio (1.1-2.1) L 03/31/23 04:39 Specimen Type Catherized urine 03/29/23 23:46 Urine Color Dark yellow (YELLOW) 03/29/23 23:46 Urine Appearance Clear (CLEAR) 03/29/23 23:46 Urine pH 5.0 (5.0 - 8.0) 03/29/23 23:46 Ur Specific [place] 1.025 (1.000-1.030) 03/29/23 23:46 Urine Protein 3+ (NEGATIVE) 03/29/23 23:46 Urine Glucose (UA) Negative (NEGATIVE) 03/29/23 23:46 Urine Ketones Negative (NEGATIVE) 03/29/23 23:46 Urine Blood Negative (NEGATIVE) 03/29/23 23:46 Urine Nitrite Negative (NEGATIVE) 03/29/23 23:46 Urine Bilirubin Negative (NEGATIVE) 03/29/23 23:46 Urine Urobilinogen 1+ (NORMAL) 03/29/23 23:46 Ur Leukocyte Esterase Negative (NEGATIVE) 03/29/23 23:46 Urine RBC 0-2 /HPF (0-3) 03/29/23 23:46 Urine WBC 0-2 /HPF (0-5) 03/29/23 23:46 Ur Squamous Epith Cells Rare /HPF (NEGATIVE) 03/29/23 23:46 Amorphous Sediment Trace /HPF (NEGATIVE) 03/29/23 23:46 Urine Bacteria Trace /HPF (NEGATIVE) 03/29/23 23:46 Hyaline Casts Moderate /LPF (NEGATIVE) 03/29/23 23:46 Coarse Granular Casts Few /HPF (NEGATIVE) 03/29/23 22:16 Urine Mucus Few /HPF (NEGATIVE) 03/29/23 23:46 Ur Culture Indicated? No/not indicated 03/29/23 23:46 Urine Opiates Screen Negative (NEG=<300) 03/29/23 22:16 Urine Methadone Screen Negative (NEG=<300) 03/29/23 22:16 Ur Barbiturates Screen Negative (NEG=<200) 03/29/23 22:16 Phenytoin 3.5 ug/mL (10-20) L 03/29/23 20:50 Ur Phencyclidine Scrn Negative (NEG=<25) 03/29/23 22:16 Ur Amphetamines Screen Negative (NEG=<1000) 03/29/23 22:16 U Benzodiazepines Scrn Positive (NEG=<200) 03/29/23 22:16 Urine Cocaine Screen Negative (NEG=<300) 03/29/23 22:16 U Marijuana (THC) Screen Negative (NEG=<50) 03/29/23 22:16 SARS-CoV-2 (PCR) Negative (NEGATIVE) 03/29/23 21:50 Influenza Type A (PCR) Negative (NEGATIVE) 03/29/23 21:50 Influenza Type B (PCR) Negative (NEGATIVE) 03/29/23 21:50 RSV (PCR) Negative (NEGATIVE) 03/29/23 21:50 Plan (1) CHF exacerbation: Status: Acute Qualifiers: Heart failure type: unspecified Qualified Code(s): I50.9 - Heart failure, unspecified (2) Acute kidney injury superimposed on CKD: Status: Acute (3) Hypomagnesemia: Status: Acute (4) Chronic cerebrovascular accident (CVA): Status: Acute (5) Seizure: Status: Acute Qualifiers: Convulsion type: unspecified Qualified Code(s): R56.9 - Unspecified convulsions (6) Essential hypertension: Status: Acute (7) CAD (coronary atherosclerotic disease): Status: Acute Qualifiers: Associated angina: without angina Coronary Disease-Associated Artery/Lesion type: bypass graft, other Qualified Code(s): I25.810 - Athero sclerosis of coronary artery bypass graft(s) without angina pectoris (8) Diabetes type 2, controlled: Status: Acute Qualifiers: Chronic kidney disease stage: unspecified stage Diabetes mellitus complication detail: with chronic kidney disease Diabetes mellitus complication status: with kidney complications Diabetes mellitus prison insulin use: with prison use Qualified Code(s): E11.22 - Type 2 diabetes mellitus with diabetic chronic kidney disease; 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
[2023-03-31] MEDS: ASPIRIN EC 81 MG PO SCH (20:22)
[2023-03-31] MEDS: ZOCOR TAB 40 MG PO SCH (20:22)
[2023-03-31] MEDS: NovoLIN R (or HumuLIN R) SC PRN (21:23)
[2023-04-01 06:26] LABS: BASOPHILS # (AUTO) 0.1 X10^3/uL (0.0-0.1); BASOPHILS % (AUTO) 1.2 % (0.2-1.0); EOSINOPHILS # (AUTO) 0.2 x10^3/uL (0.0-0.2); EOSINOPHILS % (AUTO) 2.8 % (0.9-2.9); HEMATOCRIT 34.6 % (42.0-54.0); HEMOGLOBIN 11.4 g/dL (13.5-18.0); LYMPHOCYTES # (AUTO) 1.4 X10^3/uL (1.3-2.9); LYMPHOCYTES % (AUTO) 15.9 % (21.0-51.0); MEAN CORPUSCULAR HEMOGLOBIN 27.7 pg (27.0-34.0); MEAN CORPUSCULAR HGB CONC 32.9 g/dL (33.0-35.0); MEAN CORPUSCULAR VOLUME 84.2 fL (80.0-100.0); MEAN PLATELET VOLUME 10.1 fL (7.4-11.0); MONOCYTES # (AUTO) 0.9 x10^3/uL (0.3-0.8); MONOCYTES % (AUTO) 10.3 % (0.0-13.0); NEUTROPHILS # (AUTO) 6.1 x10^3/uL (2.2-4.8); NEUTROPHILS % (AUTO) 69.8 % (42.0-75.0); PLATELET COUNT 225 X10^3/uL (150.0-450.0); RED BLOOD COUNT 4.11 X10^6/uL (4.7-6.0); RED CELL DISTRIBUTION WIDTH 13.5 % (11.6-16.5); WHITE BLOOD COUNT 8.8 X10^3/uL (3.6-10.0)
[2023-04-01 06:39] LABS: ALANINE AMINOTRANSFERASE 129 Units/L (12-78); ALBUMIN 3.8 g/dL (3.4-5.0); ALKALINE PHOSPHATASE 45 Units/L (46-116); ASPARTATE AMINO TRANSFERASE 105 Units/L (15-37); BLOOD UREA NITROGEN 27 mg/dL (7-18); CALCIUM 8.5 mg/dL (8.5-10.1); CARBON DIOXIDE 26.6 mmol/L (21-32); CHLORIDE 97 mmol/L (98-107); COR NA(FOR HYPERGLY) 134 mmol/L (136-145); CREATININE 1.82 mg/dL (0.70-1.30); GLUCOSE 111 mg/dL (65-99); MAGNESIUM 1.6 mg/dL (2.0-2.9); POTASSIUM 3.6 mmol/L (3.5-5.1); SODIUM 134 mmol/L (136-145); TOTAL PROTEIN 7.5 g/dL (6.4-8.2); eGFR NON BLACK RACES 41 (>60)
[2023-04-01] MEDS ORDERED: CONSULT PHARMACY - POTASSIUM & MAGNESIUM XX SCH (07:00)
--- NOTE | 2023-04-01 07:31 | RAD ---
EXAM:CHEST, 1 VIEWHISTORY:chf, cva, elevated cardiac enzymes;COMPARISON:03/31/2023.TECHNIQUE: AP view of the chestFINDINGS:Status post median sternotomy. The 3rd most cranial sternal wire is fractured. Cardiac silhouette is stably enlarged. No consolidation or segmental lung collapse. No definite pleural effusion or pneumothorax.IMPRESSION:Stable cardiomegaly.THIS IS AN ELECTRONICALLY VERIFIED FINAL REPORT04/01/2023 7:28 AM - Electronically signed by Gm Juan MD
[2023-04-01] MEDS: DILANTIN CAP 100 MG EXT REL PO SCH ×2 (08:56→20:47)
[2023-04-01] MEDS: LASIX IVP SCH (08:57)
[2023-04-01] MEDS: LOPRESSOR TAB 50 MG PO SCH ×2 (08:57→20:47)
[2023-04-01] MEDS ORDERED: MAG-OX TAB PO SCH (09:00)
[2023-04-01] MEDS ORDERED: MICRO K EXTEN CAP 10 MEQ PO SCH (09:00)
--- NOTE | 2023-04-01 10:25 | PCM.PROG ---
Progress Note - Progress Note for Day of Date of Exam: 04/01/23 - Subjective Subjective: IS A 58 YEAR OLD PATIENT OF OURS. HE WAS ADMITTED TO THE HOSPTIAL ON 03/29/23 FOR TREATMENT OF CHF EXACERBATION, ACUTE KIDNEY INJURY SUPERIMPOSED ON CKD, CVA, SEIZURE, HTN. HIS MEDICAL HX INCLUDES: CAD, DM II, DYSLIPIDEMIA, HTN, HYPOTHYROIDISM, SEIZURE DISORDER, CABG. PATIENT ADMITTED TO LEFT SIDED FACIAL DROOPING AND SLURRED SPEECH ON ADMISSION. HE REPORTS THAT SYMPTOMS STARTED ABOUT A WEEK PRIOR TO PRESENTATION. HE HAS HAD SOME SHORTNESS OF BREATH AND WEAKNESS OVER THE WEEKEND. TODAY, HE IS ALERT AND ORIENTED, LYING IN BED ON MORNING ROUNDS. HE DENIES WEAKNESS THIS MORNING. THERE DOES NOT APPEAR TO BE ANY SLURRED SPEECH OR FACIAL DROOP AT THIS TIME. NURSING STAFF REPORTS TRACY T HE HAS HAD AN UNEVENTFUL NIGHT. ON EXAMINATION, HEART IS REGULAR IN RATE AND RHYTHM. BILATERAL LUNGS ARE NOTED WITH DIMINISHED LUNG SOUNDS THROUGHOUT. ABDOMEN IS ROUND, SOFT, AND NON-TENDER WITH NORMAL BOWEL SOUNDS NOTED IN ALL QUADRANTS. GOOD RANGE OF MOTION NOTED TO UPPER AND LOWER EXTREMITIES. TRACE EDEMA NOTED TO BLE. HIS VITALS THIS MORNING ARE: 98.0-89-18-96%-160/84. LABS WERE OBTAINED. WBC 8.8, RBC 4.11, HGB 11.4, HCT 34.6, PLT COUNT 225, SODIUM 134, POTASSIUM 3.6, CHLORIDE 97, BUN 27, CREATININE 1.82, GLUCOSE 114, CALCIUM 8.5, MAGNESIUM 1.6, TOTAL BILI 0.50, AST 105, ALT 129, ALK PHOS 45, BNP 3850, TOTAL PROTEIN 7.5, ALBUMIN 3.8. A CHEST XRAY WAS OBTAINED THIS MORNING AND REVEALED: Status post median sternotomy. The 3rd most cranial sternal wire is fractured. Cardiac silhouette is stably enlarged. No consolidation or segmental lung collapse. No definite pleural effusion or pneumothorax. HE IS CURRENTLY RECEIVING LASIX 40MG IV DAILY, ZOCOR 40MG HS, ECOTRIN 81MG HS, XANAX 1 MG TID PRN, APRESOLINE 10MG IV Q4H PRN, NORCO 10/325MG TID PRN, LOPRESSOR 50MG BID, DILANTIN 100MG BID, OTBS ACHS, HUMULIN R SLIDING SCALE. TODAY, WE WILL INCREASE THE ASPIRIN TO 325MG DAILY, CHANGE THE ZOCOR TO LIPITOR 40MG HS, AND ADD PLAVIX 75MG DAILY. WE WILL OBTAIN AN ECHOCARDIOGRAM AND A BRAIN MRI WITHOUT CONTRAST THIS MORNING. WE WILL HAVE PHYSICAL THERAPY EVALUATE HIM. OTHERWISE, WE WILL FOLLOW UP WITH AM LABS AND CONTINUE TO MONITOR. TIME SPENT ON CLINICAL ASSESSMENT, REVIEWING LABS AND IMAGING, DECISION MAKING, AND DOCUMENTATION GREATER THAN 45 MINUTES. - Past Medical Family Social History Past Med/Fam/Surg Hx: No changes since H&P Allergies: Allergies morphine Allergy (Verified 03/29/23 20:34) - Review of Systems ROS: No change since H&P - Vital Signs and I&O's Vital Signs: Vital Signs Temperature 98.0 F Temperature 98.5 F Pulse Rate [Left] 89 Pulse Rate [Left] 81 Respiratory Rate 18 Respiratory Rate 18 Blood Pressure [Right Arm] 160/84 Blood Pressure [Right Arm] 194/108 Blood Pressure [Right Arm] 159/78 O2 Sat by Pulse Oximetry 96 O2 Sat by Pulse Oximetry 95 Intake and Output: Intake & Output 03/29/23 03/30/23 03/31/23 04/01/23 11:59 11:59 11:59 11:59 Intake Total 232 / 232 1560 / 1560 1050 / 1050 Output Total 500 / 500 3600 / 3600 2200 / 2200 Balance -268 / -268 -2040 / -2040 -1150 / -1150 - Physical Exam Oriented: Normal Eyes: Normal Ear: Normal Nose: Normal Throat: Normal Respiratory: Generalized, Diminished Cardiovascular: Normal : Normal Auscultation: Bowel Sounds: Normal Palpation: Normal Tenderness: Normal Skin: Normal Musculoskeletal: Normal Psychiatric: Normal Mood Description: Calm Affect: Normal Speech Pattern: Clear, Appropriate - Laboratory and Diagnostics Result Diagrams: 04/01/23 05:57 04/01/23 05:57 Labs: Laboratory WBC 8.8 X10^3/uL (3.6-10.0) 04/01/23 05:57 RBC 4.11 X10^6/uL (4.7-6.0) L 04/01/23 05:57 Hgb 11.4 g/dL (13.5-18.0) L 04/01/23 05:57 Hct 34.6 % (42.0-54.0) L 04/01/23 05:57 MCV 84.2 fL (80.0-100.0) 04/01/23 05:57 MCH 27.7 pg (27.0-34.0) 04/01/23 05:57 MCHC 32.9 g/dL (33.0-35.0) L 04/01/23 05:57 RDW 13.5 % (11.6-16.5) 04/01/23 05:57 Plt Count 225 X10^3/uL (150.0-450.0) 04/01/23 05:57 MPV 10.1 fL (7.4-11.0) 04/01/23 05:57 Neut % (Auto) 69.8 % (42.0-75.0) 04/01/23 05:57 Lymph % (Auto) 15.9 % (21.0-51.0) L 04/01/23 05:57 [place] % (Auto) 10.3 % (0.0-13.0) 04/01/23 05:57 Eos % (Auto) 2.8 % (0.9-2.9) 04/01/23 05:57 Baso % (Auto) 1.2 % (0.2-1.0) H 04/01/23 05:57 Neut # (Auto) 6.1 x10^3/uL (2.2-4.8) H 04/01/23 05:57 Lymph # (Auto) 1.4 X10^3/uL (1.3-2.9) 04/01/23 05:57 [place] # (Auto) 0.9 x10^3/uL (0.3-0.8) H 04/01/23 05:57 Eos # (Auto) 0.2 x10^3/uL (0.0-0.2) 04/01/23 05:57 Baso # (Auto) 0.1 X10^3/uL (0.0-0.1) 04/01/23 05:57 Absolute Nucleated RBC 0.1 /100WBC 04/01/23 05:57 PT 15.0 SECONDS (11.8-14.3) 03/29/23 20:50 INR Target Range - 03/29/23 20:50 INR 1.20 (0.8-1.3) 03/29/23 20:50 APTT 27.7 SECONDS (22.9-36.5) 03/29/23 20:50 PTT Comment - 03/29/23 20:50 Sodium 134 mmol/L (136-145) L 04/01/23 05:57 Corrected Sodium 134 mmol/L (136-145) L 04/01/23 05:57 Potassium 3.6 mmol/L (3.5-5.1) 04/01/23 05:57 Chloride 97 mmol/L (98-107) L 04/01/23 05:57 Carbon Dioxide 26.6 mmol/L (21-32) 04/01/23 05:57 BUN 27 mg/dL (7-18) H 04/01/23 05:57 Creatinine 1.82 mg/dL (0.70-1.30) H 04/01/23 05:57 Est GFR (MDRD) Af Amer 49 (>60) L 04/01/23 05:57 Est GFR (MDRD) Non-Af 41 (>60) L 04/01/23 05:57 Glucose 111 mg/dL (65-99) H 04/01/23 05:57 POC Glucose (mg/dL) 111 mg/dL (65-99) H 04/01/23 05:24 Calcium 8.5 mg/dL (8.5-10.1) 04/01/23 05:57 Corrected Calcium TNP 04/01/23 05:57 Magnesium 1.6 mg/dL (2.0-2.9) L 04/01/23 05:57 Total Bilirubin 0.50 mg/dL (0.2-1.0) 04/01/23 05:57 AST 105 Units/L (15-37) H 04/01/23 05:57 ALT 129 Units/L (12-78) H 04/01/23 05:57 Alkaline Phosphatase 45 Units/L (46-116) L 04/01/23 05:57 Creatine Kinase 67 Units/L (39-308) 03/30/23 01:25 Troponin I High Sens 107.3 ng/L (4.0-60.0) H* 03/30/23 01:25 B-Natriuretic Peptide 3850 pg/mL (0-79) H 04/01/23 05:57 Total Protein 7.5 g/dL (6.4-8.2) 04/01/23 05:57 Albumin 3.8 g/dL (3.4-5.0) 04/01/23 05:57 Globulin 3.7 g/dL (2.5-4.5) 04/01/23 05:57 Albumin/Globulin Ratio 1.0 Ratio (1.1-2.1) L 04/01/23 05:57 Specimen Type Catherized urine 03/29/23 23:46 Urine Color Dark yellow (YELLOW) 03/29/23 23:46 Urine Appearance Clear (CLEAR) 03/29/23 23:46 Urine pH 5.0 (5.0 - 8.0) 03/29/23 23:46 Ur Specific [place] 1.025 (1.000-1.030) 03/29/23 23:46 Urine Protein 3+ (NEGATIVE) 03/29/23 23:46 Urine Glucose (UA) Negative (NEGATIVE) 03/29/23 23:46 Urine Ketones Negative (NEGATIVE) 03/29/23 23:46 Urine Blood Negative (NEGATIVE) 03/29/23 23:46 Urine Nitrite Negative (NEGATIVE) 03/29/23 23:46 Urine Bilirubin Negative (NEGATIVE) 03/29/23 23:46 Urine Urobilinogen 1+ (NORMAL) 03/29/23 23:46 Ur Leukocyte Esterase Negative (NEGATIVE) 03/29/23 23:46 Urine RBC 0-2 /HPF (0-3) 03/29/23 23:46 Urine WBC 0-2 /HPF (0-5) 03/29/23 23:46 Ur Squamous Epith Cells Rare /HPF (NEGATIVE) 03/29/23 23:46 Amorphous Sediment Trace /HPF (NEGATIVE) 03/29/23 23:46 Urine Bacteria Trace /HPF (NEGATIVE) 03/29/23 23:46 Hyaline Casts Moderate /LPF (NEGATIVE) 03/29/23 23:46 Coarse Granular Casts Few /HPF (NEGATIVE) 03/29/23 22:16 Urine Mucus Few /HPF (NEGATIVE) 03/29/23 23:46 Ur Culture Indicated? No/not indicated 03/29/23 23:46 Urine Opiates Screen Negative (NEG=<300) 03/29/23 22:16 Urine Methadone Screen Negative (NEG=<300) 03/29/23 22:16 Ur Barbiturates Screen Negative (NEG=<200) 03/29/23 22:16 Phenytoin 3.5 ug/mL (10-20) L 03/29/23 20:50 Ur Phencyclidine Scrn Negative (NEG=<25) 03/29/23 22:16 Ur Amphetamines Screen Negative (NEG=<1000) 03/29/23 22:16 U Benzodiazepines Scrn Positive (NEG=<200) 03/29/23 22:16 Urine Cocaine Screen Negative (NEG=<300) 03/29/23 22:16 U Marijuana (THC) Screen Negative (NEG=<50) 03/29/23 22:16 SARS-CoV-2 (PCR) Negative (NEGATIVE) 03/29/23 21:50 Influenza Type A (PCR) Negative (NEGATIVE) 03/29/23 21:50 Influenza Type B (PCR) Negative (NEGATIVE) 03/29/23 21:50 RSV (PCR) Negative (NEGATIVE) 03/29/23 21:50 - Plan (1) CHF exacerbation Status: Acute Qualifiers: Heart failure type: unspecified Qualified Code(s): I50.9 - Heart failure, unspecified Plan: LASIX 40MG IV DAILY, LIPITOR 40MG HS, ECOTRIN 325MG DAILY, PLAVIX 75MG DAILY, XANAX 1MG TID PRN, APRESOLINE 10MG IV Q4H PRN, NORCO 10/325MG TID PRN, LOPRESSOR 50MG BID, DILANTIN 100MG BID, OTBS ACHS, HUMULIN R SLIDING SCALE. TODAY, WE WILL INCREASE THE ASPIRIN TO 325MG DAILY, CHANGE THE ZOCOR TO LIPITOR 40MG HS, AND ADD PLAVIX 75MG DAILY. (2) Chronic cerebrovascular accident (CVA) Status: Acute (3) Acute kidney injury superimposed on CKD Status: Acute (4) Hypomagnesemia Status: Acute (5) Essential hypertension Status: Chronic (6) CAD (coronary atherosclerotic disease) Status: Chronic Qualifiers: Coronary Disease-Associated Artery/Lesion type: bypass graft [place] vs. transplanted heart: [place] heart Associated angina: without angina Qualified Code(s): I25.810 - Atherosclerosis of coronary artery bypass graft(s) without angina pectoris (7) Diabetes type 2, controlled Status: Chronic Qualifiers: Diabetes mellitus nursing home insulin use: with terminal superintendent use Diabetes mellitus complication status: with hyperglycemia Qualified Code(s): E11.65 - Type 2 diabetes mellitus with hyperglycemia; Z79.4 - nursing home (current) use of insulin (8) Seizure disorder Status: Chronic
[2023-04-01] MEDS: ECOTRIN TAB 325 MG PO SCH (10:56)
[2023-04-01] MEDS: PLAVIX PO SCH (10:56)
[2023-04-01] MEDS: LOVENOX INJ 40 MG SYR SC SCH (10:56)
--- NOTE | 2023-04-01 12:08 | MRI ---
EXAM:BRAIN W/O CONHISTORY:abnormal ct/ prior cva;COMPARISON:CT head from 03/29/2023.TECHNIQUE:Multiplanar multi-sequence MRI of the brain was obtained utilizing standard departmental protocol. Sagittal and axial T1 weighted images were obtained. Axial T2 and flair weighted images were performed as well. Axial diffusion weighted and ADC trace mapping was performed.FINDINGS:Diffusion imaging: Normal, no acute infarct.Susceptibility weighted imaging: Punctate susceptibility artifact in the left frontal lobe image 16 axial T2 starBrain volume: Appropriate for age.Ventricles and basal cisterns: FLAIR bright signal in the basal cisterns and 3rd/4th ventricle is nonspecifc but often due to technical artifact. No abnormal signal in these locations on other pulse sequences. No hydrocephalus.Extra-axial spaces: No extra-axial collection.Cerebral parenchyma: No mass, hematoma, or mass effect. Moderate amount of T2 and FLAIR hyperintensities in the subcortical and deep supratentorial white matter. Chronic right posterior limb internal capsule and thalamus lacunar infarcts. Chronic pontine lacunar infarcts. Chronic genu of corpus callosum lacunar infarct image 12 series 601.Pituitary and other sagittal midline structures: Normal.Visualized orbits: Normal.Paranasal sinuses and mastoid air cells: Small right maxillary sinus retention cyst. Mild mucosal thickening in the ethmoid air cells. Moderate fluid in the right mastoid air cells.Bones: Intact.Other: None.IMPRESSION:No abnormal restricted diffusion to suggest acute infarct. Right thalamus lacunar infarct is chronic. Other chronic ischemic changes as above.FLAIR bright signal in the basal cisterns and 3rd/4th ventricle is nonspecifc but often due to technical artifact. No abnormal signal in these locations on other pulse sequences. No hydrocephalus.Moderate fluid in the right mastoid air cells. Please correlate clinically for mastoiditis.THIS IS AN ELECTRONICALLY VERIFIED FINAL REPORT04/01/2023 12:05 PM - Electronically signed by Gm Juan MD
[2023-04-01] MEDS ORDERED: CATAPRES TAB 0.1 MG PO ONE (15:58)
[2023-04-01] MEDS: XANAX PO PRN ×2 (16:04→20:00)
[2023-04-01] MEDS ORDERED: AMBIEN PO PRN (16:30)
--- NOTE | 2023-04-01 16:44 | EKG ---
Test Reason : bp 193/88, hr 127 Blood Pressure : */* mmHG Vent. Rate : 88 BPM Atrial Rate : 88 BPM P-R Int : 182 ms QRS Dur : 98 ms QT Int : 386 ms P-R-T Axes : 56 -34 163 degrees QTc Int : 467 ms Normal sinus rhythm Left axis deviation Prolonged QT Abnormal ECG When compared with ECG of 30-MAR-2023 01:18, No significant change was found Confirmed by Jossue Barba ([id number]) on 04/02/2023 7:27:17 AM Referred By: Confirmed By: Jossue Barba
[2023-04-01] MEDS ORDERED: APRESOLINE INJ 20 MG VIAL IVP ONE (17:19)
[2023-04-01] MEDS: NovoLIN R (or HumuLIN R) SC PRN (20:46)
[2023-04-01] MEDS ORDERED: LIPITOR TAB 40 MG PO SCH (21:00)
[2023-04-02 04:56] LABS: MEAN CORPUSCULAR HEMOGLOBIN 27.5 pg (27.0-34.0); WHITE BLOOD COUNT 5.4 X10^3/uL (3.6-10.0)
[2023-04-02 05:02] LABS: BASOPHILS # (AUTO) 0.1 X10^3/uL (0.0-0.1); BASOPHILS % (AUTO) 2.4 % (0.2-1.0); EOSINOPHILS # (AUTO) 0.4 x10^3/uL (0.0-0.2); EOSINOPHILS % (AUTO) 7.4 % (0.9-2.9); HEMATOCRIT 36.4 % (42.0-54.0); HEMOGLOBIN 11.9 g/dL (13.5-18.0); LYMPHOCYTES # (AUTO) 1.1 X10^3/uL (1.3-2.9); LYMPHOCYTES % (AUTO) 20.9 % (21.0-51.0); MEAN CORPUSCULAR HGB CONC 32.6 g/dL (33.0-35.0); MEAN CORPUSCULAR VOLUME 84.2 fL (80.0-100.0); MEAN PLATELET VOLUME 9.6 fL (7.4-11.0); MONOCYTES # (AUTO) 0.7 x10^3/uL (0.3-0.8); MONOCYTES % (AUTO) 13.1 % (0.0-13.0); NEUTROPHILS % (AUTO) 56.2 % (42.0-75.0); PLATELET COUNT 229 X10^3/uL (150.0-450.0); RED BLOOD COUNT 4.32 X10^6/uL (4.7-6.0); RED CELL DISTRIBUTION WIDTH 13.7 % (11.6-16.5)
[2023-04-02 05:06] LABS: ALANINE AMINOTRANSFERASE 100 Units/L (12-78); ALBUMIN 3.2 g/dL (3.4-5.0); ALKALINE PHOSPHATASE 45 Units/L (46-116); ASPARTATE AMINO TRANSFERASE 69 Units/L (15-37); BLOOD UREA NITROGEN 23 mg/dL (7-18); CARBON DIOXIDE 28.2 mmol/L (21-32); CHLORIDE 102 mmol/L (98-107); COR CA(FOR HYPOALB) 8.6 mg/dL (8.5-10.1); CREATININE 1.71 mg/dL (0.70-1.30); GLUCOSE 110 mg/dL (65-99); POTASSIUM 3.2 mmol/L (3.5-5.1); SODIUM 137 mmol/L (136-145); TOTAL PROTEIN 6.7 g/dL (6.4-8.2); eGFR NON BLACK RACES 44 (>60)
[2023-04-02] MEDS ORDERED: CONSULT PHARMACY - POTASSIUM & MAGNESIUM XX SCH (06:00)
--- NOTE | 2023-04-02 07:11 | RAD ---
EXAM:CHEST, 1 VIEWHISTORY:SOB ;COMPARISON:04/01/2023.TECHNIQUE:AP view of the chestFINDINGS:Status post median sternotomy and CABG. The cardiac silhouette is stably enlarged. Interval worsening or development of bilateral hazy pulmonary opacities. Blunted costophrenic sulci. No pneumothorax.IMPRESSION:Cardiomegaly. Hazy bilateral pulmonary opacities likely pulmonary edema but could also be seen with pneumonia. Suspect small pleural effusions.THIS IS AN ELECTRONICALLY VERIFIED FINAL REPORT04/02/2023 7:07 AM - Electronically signed by Gm Juan MD
[2023-04-02 08:07] VITALS: BP 168/90; PULSE 79; RESP 18; TEMP 98; O2SAT 95
[2023-04-02] MEDS: LOPRESSOR TAB 50 MG PO SCH (08:48)
[2023-04-02] MEDS: DILANTIN CAP 100 MG EXT REL PO SCH (08:48)
[2023-04-02] MEDS: K-DUR TAB 20 MEQ PO SCH ×2 (08:48→11:20)
[2023-04-02] MEDS: LASIX IVP SCH (08:48)
[2023-04-02] MEDS: ECOTRIN TAB 325 MG PO SCH (08:48)
[2023-04-02] MEDS: LOVENOX INJ 40 MG SYR SC SCH (08:49)
[2023-04-02] MEDS: PLAVIX PO SCH (08:50)
[2023-04-02] MEDS: XANAX PO PRN (08:50)
== END 2023-04-02 11:15 | disposition home or self-care (01) | DRG 292 ==
LOC: ER 20:13 → MED/SURG 03-30
PROVIDERS: ADMIT Family Medicine; ATTEND Internal Medicine
DX: E11.65 Type 2 diabetes mellitus with hyperglycemia; Z86.73 Personal history of transient ischemic attack (TIA), and cerebral infarction without residual deficits; R47.81 Slurred speech; Z20.822 Contact with and (suspected) exposure to COVID-19; E11.22 Type 2 diabetes mellitus with diabetic chronic kidney disease; R77.8 Other specified abnormalities of plasma proteins; I25.810 Atherosclerosis of coronary artery bypass graft(s) without angina pectoris; R53.1 Weakness; N18.9 Chronic kidney disease, unspecified; R29.810 Facial weakness; I50.9 Heart failure, unspecified; I13.0 Hypertensive heart and chronic kidney disease with heart failure and stage 1 through stage 4 chronic kidney disease, or unspecified chronic kidney disease; N17.8 Other acute kidney failure; E83.42 Hypomagnesemia; R06.02 Shortness of breath; Z79.4 Long term (current) use of insulin

== ENCOUNTER 2023-05-01 18:51 | Inpatient (IN) ==
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
[2023-05-01] MEDS ORDERED: SOLU-Medrol 125 MG VIAL ONE (22:43)
[2023-05-01 22:45] LABS: ABG ALLEN TEST POS; ABG BASE EXCESS -1.1 mmol/L (-2.0-2.0); ABG HCO3 22.4 mmol/L (22-26)
[2023-05-01] MEDS: DUONEB 0.5 MG/3 MG (3 mL) NEB ONE (22:47)
[2023-05-01] MEDS: SOLU-Medrol 125 MG VIAL IVP ONE (22:57)
[2023-05-01 23:02] LABS: BASOPHILS # (AUTO) 0.1 X10^3/uL (0.0-0.1); EOSINOPHILS # (AUTO) 0.4 x10^3/uL (0.0-0.2); EOSINOPHILS % (AUTO) 7.4 % (0.9-2.9); HEMATOCRIT 35.7 % (42.0-54.0); HEMOGLOBIN 11.4 g/dL (13.5-18.0); LYMPHOCYTES # (AUTO) 1.2 X10^3/uL (1.3-2.9); LYMPHOCYTES % (AUTO) 21.2 % (21.0-51.0); MEAN CORPUSCULAR HEMOGLOBIN 26.5 pg (27.0-34.0); MEAN CORPUSCULAR HGB CONC 32.1 g/dL (33.0-35.0); MEAN CORPUSCULAR VOLUME 82.7 fL (80.0-100.0); MEAN PLATELET VOLUME 9.8 fL (7.4-11.0); MONOCYTES # (AUTO) 0.6 x10^3/uL (0.3-0.8); MONOCYTES % (AUTO) 10.1 % (0.0-13.0); NEUTROPHILS # (AUTO) 3.5 x10^3/uL (2.2-4.8); NEUTROPHILS % (AUTO) 59.3 % (42.0-75.0); PLATELET COUNT 175 X10^3/uL (150.0-450.0); RED BLOOD COUNT 4.32 X10^6/uL (4.7-6.0); RED CELL DISTRIBUTION WIDTH 15.5 % (11.6-16.5); WHITE BLOOD COUNT 5.8 X10^3/uL (3.6-10.0)
--- NOTE | 2023-05-01 23:17 | RAD ---
EXAM: FRONTAL VIEW CHEST X-RAY HISTORY: Shortness of breath COMPARISON: 04/02/2023 FINDINGS: No focal consolidation is seen. The heart size is persistently enlarged but stable from prior exam with postsurgical changes from mid line sternotomy. There is no radiographic evidence of pulmonary edema. The mediastinum is unremarkable. There is no evidence of pleural effusion or gross pneumothorax. The trachea is midline. IMPRESSION: 1. The heart size is persistently enlarged but stable from prior exam with postsurgical changes from midline sternotomy. There is no radiographic evidence of pulmonary edema. THIS IS AN ELECTRONICALLY VERIFIED FINAL REPORT 05/01/2023 11:13 PM - Electronically signed by Piyush Aviles MD
[2023-05-01 23:25] LABS: ALANINE AMINOTRANSFERASE 26 Units/L (12-78); ALBUMIN 3.6 g/dL (3.4-5.0); ALKALINE PHOSPHATASE 38 Units/L (46-116); ASPARTATE AMINO TRANSFERASE 17 Units/L (15-37); BLOOD UREA NITROGEN 34 mg/dL (7-18); CALCIUM 8.4 mg/dL (8.5-10.1); CARBON DIOXIDE 25.6 mmol/L (21-32); CHLORIDE 102 mmol/L (98-107); COR NA(FOR HYPERGLY) 142 mmol/L (136-145); CREATINE KINASE 64 Units/L (39-308); CREATININE 2.34 mg/dL (0.70-1.30); GLUCOSE 147 mg/dL (65-99); POTASSIUM 3.9 mmol/L (3.5-5.1); SODIUM 141 mmol/L (136-145); TOTAL PROTEIN 7.3 g/dL (6.4-8.2); eGFR NON BLACK RACES 31 (>60)
--- NOTE | 2023-05-01 23:37 | EKG ---
Test Reason : sob Blood Pressure : */* mmHG Vent. Rate : 98 BPM Atrial Rate : 98 BPM P-R Int : 168 ms QRS Dur : 100 ms QT Int : 368 ms P-R-T Axes : 88 -31 151 degrees QTc Int : 469 ms Normal sinus rhythm Poor R-wave progression Left axis deviation Prolonged QT Abnormal ECG When compared with ECG of 01-APR-2023 16:08, No significant change was found Confirmed by Jhon Walden MD ([id number]) on 05/02/2023 7:38:25 AM Referred By: Confirmed By: Jhon Walden MD
--- NOTE | 2023-05-02 00:49 | EKG ---
Test Reason : CHEST PAIN Blood Pressure : */* mmHG Vent. Rate : 100 BPM Atrial Rate : 100 BPM P-R Int : 180 ms QRS Dur : 100 ms QT Int : 362 ms P-R-T Axes : 55 -33 147 degrees QTc Int : 466 ms Normal sinus rhythm Possible Left atrial enlargement Left axis deviation Prolonged QT Abnormal ECG When compared with ECG of 01-MAY-2023 23:34, (Unconfirmed) No significant change was found Confirmed by Jhon Walden MD ([id number]) on 05/02/2023 7:35:45 AM Referred By: Confirmed By: Jhon Walden MD
[2023-05-02] MEDS: LASIX IVP ONE ×2 (01:26)
[2023-05-02] MEDS: LASIX ONE (01:26)
[2023-05-02] MEDS ORDERED: CATAPRES TAB 0.1 MG ONE ×2 (02:07→03:32)
[2023-05-02] MEDS: CATAPRES TAB 0.1 MG PO ONE ×2 (02:11→03:35)
[2023-05-02] MEDS ORDERED: APRESOLINE INJ 20 MG VIAL ONE (04:16)
[2023-05-02] MEDS: APRESOLINE INJ 20 MG VIAL IVP ONE (04:18)
[2023-05-02] MEDS ORDERED: PATIENT'S HOME MEDICATION (Alprazolam 1 mg tablet) PO PRN (05:07)
[2023-05-02] MEDS ORDERED: XANAX PO PRN (05:27)
--- NOTE | 2023-05-02 05:28 | EKG ---
Test Reason : sob Blood Pressure : */* mmHG Vent. Rate : 97 BPM Atrial Rate : 97 BPM P-R Int : 124 ms QRS Dur : 100 ms QT Int : 400 ms P-R-T Axes : 5 -17 158 degrees QTc Int : 508 ms Normal sinus rhythm Abnormal ECG When compared with ECG of 02-MAY-2023 00:45, (Unconfirmed) No significant change was found horrible baseline artifact Confirmed by Jhon Walden MD ([id number]) on 05/02/2023 7:35:28 AM Referred By: Confirmed By: Jhon Walden MD
[2023-05-02 06:05] VITALS: BMI 31.6
[2023-05-02] MEDS: COREG TAB 6.25 MG PO SCH (08:39)
[2023-05-02] MEDS: EFFEXOR XR 150 MG CAP 24-HR PO SCH (08:40)
[2023-05-02] MEDS: ECOTRIN TAB 325 MG PO SCH (08:40)
[2023-05-02] MEDS: ENTRESTO 24/26 MG TABLET PO SCH (08:40)
[2023-05-02] MEDS: DILANTIN CAP 100 MG EXT REL PO SCH (08:40)
[2023-05-02] MEDS: TRICOR TAB 145 MG PO SCH (08:41)
[2023-05-02] MEDS: SYNTHROID 75 mcg TAB PO SCH (08:41)
[2023-05-02] MEDS: REGLAN TAB 10 MG PO SCH (08:41)
[2023-05-02] MEDS: PLAVIX PO SCH (08:41)
[2023-05-02] MEDS ORDERED: LASIX PO SCH (09:00)
[2023-05-02] MEDS: LASIX PO SCH (10:45)
--- NOTE | 2023-05-02 13:08 | DR.H&P ---
H&P - History & Physical for Day of: H&P Date: 05/02/23 - Chief Complaint Chief Complaint: SOB, LOWER EXTREMITY SWELLING, WEAKNESS - History of Present Illness History of Present Illness: MR FAJARDO IS A 58Y/O MALE WITH A PMH OF CHF, COPD, CAD S/P CABG, CVA, SEIZURES, HTN, HLD, CKD, DM II, HYPOTHYROIDISM PRESENTED WITH WORSENING DYSPNEA, LOWER EXTREMITY SWELLING, AND WEAKNESS. HE REPORTS THAT SYMPTOMS HAVE WORSENED OVER THE PAST TWO DAYS. HE DENIES CHEST PAIN, ABDOMINAL PAIN, BACK PAIN, FEVER, OR NAUSEA/VOMITING. HE ADMITS TO HAVING A STROKE ABOUT FOUR MONTHS AGO. HE WAS HOSPITALIZED LAST MONTH FOR TX OF CHF AND ACUTE ON CHRONIC KIDNEY INJURY. AN ECHOCARDIOGRAM WAS OBTAINED AT THAT TIME AND REVEALED AN EJECTION FRACTION OF 20%, RVSP 37 mmHG. HE WAS DISCHARGED HOME ON 04/02 WITH NEW RX FOR ENTRESTO AND LASIX FOR THE CHF AND WAS ALSO INSTRUCTED TO CONTINUE HIS COREG. HE IS CURRENTLY FOLLOWED BY , ELECTRONICS WARFARE TECHNICIAN. APPARENTLY INCREASED HIS LASIX FROM 20MG DAILY TO 40MG BID A FEW DAYS AGO. PATIENT REPORTS COMPLIANCE WITH MEDICATIONS. ON ARRIVAL TO THE ER FOR THIS VISIT, HIS VITALS WERE: 97.5-99-12-99%-164/99. LABS WERE OBTAINED. WBC 5.8, RBC 4.32, HGB 11.4, HCT 35.7, PLT COUNT 175, SODIUM 141, POTASSIUM 3.9, CHLORIDE 102, CARBON DIOXIDE 25.6, BUN 34, CREATININE 2.34, GLUCOSE 147, LACTIC ACID 1.6, CALCIUM 8.4, TOTAL BILI 0.50, AST 17, ALT 26, ALK PHOS 38, CREATINE KINASE 64, TROPONIN 77.5, CRP 5.00, BNP >5000, TOTAL PROTEIN 7.3, ALBUMIN 3.6. AN ABG WAS OBTAINED AND REVEALED: PH 7.440, PC02 33, P02 67, HC03 22.4, A-A GRADIENT 41, FI02 21. COVID, INFLUENZA, AND RSV NEGATIVE. BLOOD CULTURES WERE SET UP. A CHEST XRAY WAS OBTAINED AND REVEALED: NO FOCAL CONSOLIDATION IS SEEN. THE HEART SIZE IS PERSISTENTLY ENLARGED BUT STABLE FROM PRIOR EXAM WITH POSTSURGICAL CHANGES FROM MIDLINE STERNOTOMY. THERE IS NO RADIOGRAPHIC EVIDENCE OF PULMONARY EDEMA. THE MEDIASTINUM IS UNREMARKABLE.THERE IS NO EVIDENCE OF PLEURAL EFFUSION OR GROSS PNEUMOTHORAX.THE TRACHEA IS MIDLINE. EKG WAS OBTAINED AND REVEALED: NORMAL SINUS RHYTHM WITH HR 98 BPM. IN THE ER, HE WAS GIVEN A DUONEB X 1, SOLU-MEDROL 125MG IV X 1, LASIX 60MG IV X 1, CATAPRES 0.1MG PO X 2 DOSES, APRESOLINE 5MG IV X 1 DOSE. PATIENT WAS ADMITTED TO THE HOSPITAL FOR FURTHER EVALUATION AND TREATMENT OF CHF EXACERBATION, ACUTE KIDNEY INJURY. HE WAS STARTED ON LASIX 40MG IV BID, OTBS ACHS, OTBS ACHS, HUMULIN R SLIDING SCALE. HIS HOME MEDICATIONS OF ALPRAZOLAM, ASPIRIN, LIPITOR, COREG, PLAVIX, TRICOR, NORCO, SYNTHROID, REGLAN, DILANTIN, ENTRESTO, AND VENLAFAXINE WERE RESUMED. WE WILL CONSULT , HIS ELECTRONICS WARFARE TECHNICIAN. OTHERWISE, WE WILL FOLLOW-UP WITH AM LABS AND CHEST XRAY AND CONTINUE TO MONITOR. TIME SPENT ON CLINICAL ASSESSMENT, REVIEWING LABS AND IMAGING, DECISION MAKING, AND DOCUMENTATION GREATER THAN 75 MINUTES. - Past Medical History Past Medical History: Coronary Artery Disease, Hypertension, Dyslipidemia, Diabetes, Hypothyroidism, Seizures - Past Surgical History Surgical History: CABG/Valve Surgery, Ortho Surgery - Family History Family Medical History: Diabetes Mellitus, Cancer, [place], Coronary Artery Disease, Heart Failure, Sudden Cardiac , Hypertension - Social History Alcohol Use: None Drug Use: None - Review of Systems Constitutional: Weakness Eyes: No Symptoms Reported ENT: No Symptoms Reported Respiratory: Shortness of Breath Cardiovascular: Edema (BILATERAL LOWER EXTREMITIES ) Gastrointestinal: No Symptoms Reported Genitourinary: No Symptoms Reported Musculoskeletal: No Symptoms Reported Skin: No Symptoms Reported Neurological: Weakness - Physical Exam Vital Signs: Vital Signs Temperature 97.8 F Pulse Rate [Left] 99 Respiratory Rate 20 Blood Pressure [Left Arm] 166/96 O2 Sat by Pulse Oximetry 98 Oriented: Normal Eyes: Normal Ear: Normal Nose: Normal Throat: Normal Respiratory: Diminished Throughout Cardiovascular: Edema (BLE 2+ PITTING EDEMA ) : Normal Auscultation: Bowel Sounds: Normal Palpation: Normal Tenderness: Normal Skin: Normal Musculoskeletal: Normal Psychiatric: Normal Mood Description: Calm Affect: Normal Speech Pattern: Clear - Assessment/Plan (1) CHF exacerbation Qualifiers: Heart failure type: unspecified Status: Acute Plan: LASIX 40MG IV BID, OTBS ACHS, OTBS ACHS, HUMULIN R SLIDING SCALE. HIS HOME MEDICATIONS OF ALPRAZOLAM, ASPIRIN, LIPITOR, COREG, PLAVIX, TRICOR, NORCO, SYNTHROID, REGLAN, DILANTIN, ENTRESTO, AND VENLAFAXINE WERE RESUMED. CARDIOLOGY CONSULT. REPEAT AM LABS AND CHEST XRAY (2) Acute kidney injury superimposed on CKD Status: Acute (3) Hyperlipidemia Qualifiers: Hyperlipidemia type: mixed hyperlipidemia Qualified Code(s): E78.2 - Mixed hyperlipidemia Status: Chronic (4) CAD (coronary artery disease) Qualifiers: Coronary Disease-Associated Artery/Lesion type: [place] artery [place] vs. 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 use: with retirement use Diabetes mellitus complication status: with hyperglycemia Qualified Code(s): E11.65 - Type 2 diabetes mellitus with hyperglycemia; Z79.4 - [facility] (current) use of insulin Status: Chronic - Allergies Allergies/Adverse Reactions: Allergies Allergy/AdvReac Type Severity Reaction Status Date / Time morphine Allergy Verified 05/02/23 05:59 - Medications Home Medications: Home Medications Medication Instructions Recorded Confirmed alprazolam 1 mg tablet 1 mg PO TID PRN 04/09/23 04/26/23 fenofibrate nanocrystallized 145 145 mg PO QDAY 04/09/23 04/26/23 mg tablet hydrocodone 10 mg-acetaminophen 1 tab PO Q4H PRN 04/09/23 04/26/23 325 mg tablet levothyroxine 75 mcg tablet 75 mcg PO QDAY 04/09/23 04/26/23 metformin 1,000 mg tablet 1,000 mg PO BID 04/09/23 04/26/23 metoclopramide HCl 10 mg tablet 10 mg PO BID 04/09/23 04/26/23 phenytoin sodium extended 100 mg 100 mg PO BID 04/09/23 04/26/23 capsule venlafaxine 150 mg 150 mg PO QDAY 04/09/23 04/26/23 capsule,extended release 24 hr Previous Rx's Medication Instructions Recorded aspirin 325 mg tablet,delayed 325 mg PO DAILY #30 tabs 04/02/23 release atorvastatin 40 mg tablet 40 mg PO HS #30 tabs 04/02/23 clopidogrel 75 mg tablet 75 mg PO DAILY #30 tabs 04/02/23 furosemide 20 mg tablet 20 mg PO DAILY #30 tabs 04/02/23 sacubitril 24 mg-valsartan 26 mg 1 tab PO BID #60 tabs 04/02/23 tablet (Entresto) carvedilol 6.25 mg tablet 6.25 mg PO BID #180 tabs 04/09/23 furosemide 40 mg tablet (Lasix) 40 mg PO BID #120 tabs 04/26/23
[2023-05-02] MEDS: LASIX IVP SCH (16:51)
[2023-05-02] MEDS: NovoLIN R (or HumuLIN R) SUBCUT PRN (16:51)
--- NOTE | 2023-05-02 18:42 | EKG ---
Test Reason : CHF, Elevated troponin Blood Pressure : */* mmHG Vent. Rate : 94 BPM Atrial Rate : 94 BPM P-R Int : 166 ms QRS Dur : 92 ms QT Int : 384 ms P-R-T Axes : * 0 168 degrees QTc Int : 480 ms Normal sinus rhythm Minimal voltage criteria for LVH, may be normal variant ( [place] product ) Abnormal ECG When compared with ECG of 02-MAY-2023 05:12, No significant change was found Confirmed by Jhon Walden MD ([id number]) on 05/03/2023 7:41:46 AM Referred By: Confirmed By: Jhon Walden MD
[2023-05-02] MEDS: LIPITOR TAB 40 MG PO SCH (20:22)
--- NOTE | 2023-05-02 23:13 | EKG ---
Test Reason : CHF, Elevated troponin Blood Pressure : */* mmHG Vent. Rate : 93 BPM Atrial Rate : 93 BPM P-R Int : 112 ms QRS Dur : 98 ms QT Int : 358 ms P-R-T Axes : 63 -37 173 degrees QTc Int : 445 ms Normal sinus rhythm Left axis deviation Incomplete right bundle branch block Abnormal ECG When compared with ECG of 02-MAY-2023 18:30, (Unconfirmed) Incomplete right bundle branch block is now present Confirmed by Jhon Walden MD ([id number]) on 05/03/2023 7:41:34 AM Referred By: Confirmed By: Jhon Walden MD
--- NOTE | 2023-05-03 05:04 | EKG ---
Test Reason : CHF, Elevated troponin Blood Pressure : */* mmHG Vent. Rate : 96 BPM Atrial Rate : 96 BPM P-R Int : 200 ms QRS Dur : 100 ms QT Int : 378 ms P-R-T Axes : 25 -23 163 degrees QTc Int : 477 ms Sinus rhythmwith borderline first degree AVB Incomplete right bundle branch block Nonspecific ST and T wave abnormality-consider ischemia Abnormal ECG When compared with ECG [id number] 23:00,(Unconfirmed) MS intervalhas increased Confirmed by Jhon Walden MD ([id number]) on 05/03/2023 7:41:10 AM Referred By: Confirmed By: Jhon Walden MD
--- NOTE | 2023-05-03 05:33 | RAD ---
EXAM:CHEST, 1 VIEWHISTORY:SOB; CAD, HTN, DM, SEIZURES SX: CABG/VALVE, ORTHOCOMPARISON:05/01/2023FINDINGS:The cardiomediastinal silhouette is stable. Similar post sternotomy changes.Faint bilateral opacities. No pneumothorax or effusion.No acute osseous abnormality.IMPRESSION:Faint bilateral opacities which may reflect chronic changes, atelectasis, edema, or pneumonia.THIS IS AN ELECTRONICALLY VERIFIED FINAL REPORT05/03/2023 5:30 AM - Electronically signed by En Uribe MD
[2023-05-03 06:20] LABS: BASOPHILS # (AUTO) 0.1 X10^3/uL (0.0-0.1); BASOPHILS % (AUTO) 1.8 % (0.2-1.0); EOSINOPHILS # (AUTO) 0.2 x10^3/uL (0.0-0.2); EOSINOPHILS % (AUTO) 3.4 % (0.9-2.9); HEMATOCRIT 31.8 % (42.0-54.0); HEMOGLOBIN 10.4 g/dL (13.5-18.0); LYMPHOCYTES # (AUTO) 1.4 X10^3/uL (1.3-2.9); LYMPHOCYTES % (AUTO) 21.2 % (21.0-51.0); MEAN CORPUSCULAR HEMOGLOBIN 26.6 pg (27.0-34.0); MEAN CORPUSCULAR HGB CONC 32.6 g/dL (33.0-35.0); MEAN CORPUSCULAR VOLUME 81.7 fL (80.0-100.0); MONOCYTES # (AUTO) 0.9 x10^3/uL (0.3-0.8); MONOCYTES % (AUTO) 13.3 % (0.0-13.0); NEUTROPHILS # (AUTO) 4.1 x10^3/uL (2.2-4.8); NEUTROPHILS % (AUTO) 60.3 % (42.0-75.0); PLATELET COUNT 163 X10^3/uL (150.0-450.0); RED CELL DISTRIBUTION WIDTH 15.4 % (11.6-16.5); WHITE BLOOD COUNT 6.8 X10^3/uL (3.6-10.0)
[2023-05-03 06:52] LABS: ALANINE AMINOTRANSFERASE 23 Units/L (12-78); ALBUMIN 3.6 g/dL (3.4-5.0); ALKALINE PHOSPHATASE 34 Units/L (46-116); ASPARTATE AMINO TRANSFERASE 21 Units/L (15-37); BLOOD UREA NITROGEN 34 mg/dL (7-18); CALCIUM 8.7 mg/dL (8.5-10.1); CARBON DIOXIDE 24.4 mmol/L (21-32); CHLORIDE 102 mmol/L (98-107); CREATININE 2.34 mg/dL (0.70-1.30); GLUCOSE 97 mg/dL (65-99); MAGNESIUM 1.6 mg/dL (2.0-2.9); POTASSIUM 3.5 mmol/L (3.5-5.1); SODIUM 141 mmol/L (136-145); eGFR NON BLACK RACES 31 (>60)
[2023-05-03] MEDS ORDERED: CONSULT PHARMACY - POTASSIUM & MAGNESIUM XX SCH (08:00)
[2023-05-03] MEDS: K-DUR TAB 20 MEQ PO SCH (08:15)
[2023-05-03] MEDS: MAG-OX TAB PO SCH (08:16)
[2023-05-03] MEDS: LOVENOX INJ 40 MG SYR SC SCH (08:16)
--- NOTE | 2023-05-03 08:33 | DR.CONSULT ---
CONSULT Consultation for Day of: Date: 05/03/23 Chief Complaint Chief Complaint: edema/sob Allergies Allergies Allergy/AdvReac Type Severity Reaction Status Date / Time morphine Allergy Verified 05/02/23 05:59 History of Present Illness History of Present Illness: 58 yo male- cabg 8 plus years ago- ef was 52%- recnt echo done for chf/stroke 20%- put on coreg/entresto/lasix- was to set up cath after a month post stroke and out of chf- had chf as outpt last week- didnt respond to oral lasix increase- admitted for chf, bnp > 5000, cr 2.34, cxr: chf, ekg: nsr diffuse st/t abnl- no acute changes- has had no cp- troponins were elevated month ago mildly and still elevated- no cp Past Medical History Past Medical History: Coronary Artery Disease, Diabetes, Dyslipidemia, Hypertension, Hypothyroidism and Seizures Past Surgical History Surgical History: CABG/Valve Surgery and Ortho Surgery Family History Family Medical History: Diabetes Mellitus, Cancer, [place], Coronary Artery Disease, Heart Failure, Sudden Cardiac and Hypertension Social History Alcohol Use: None Drug Use: None Medications Home Medications: morphine Allergy (Verified 05/02/23 05:59) CONTINUE taking the following medications zolpidem 10 mg tablet 10 mg PO QHS PRN 05/02/23 [History] Physical Exam Vital Signs: Vital Signs Temperature 97.5 F Temperature 98.7 F Pulse Rate [Left] 97 Pulse Rate [Left] 93 Respiratory Rate 18 Respiratory Rate 20 Blood Pressure [Right Arm] 170/100 Blood Pressure [Right Arm] 166/100 Blood Pressure [Left Arm] 130/75 O2 Sat by Pulse Oximetry 95 O2 Sat by Pulse Oximetry 97 lying flat- elevated jvd few crakles B, 1 plus edema ( he says much better since admission) no strict i/o- f/u labs: troponins 138/180/228, hct 31 down from 35, cr same at 2.34, bnp still > 5000 Plan (1) CHF exacerbation: Status: Acute Qualifiers: Heart failure type: unspecified Narrative Support Text: suspect graft failure to drop ef- feel troponins elevated due to chronic ischemia on coreg/entresto/lasix/statin/asa Plan: add nitrates- strict i/o- follow hct closely- when out of chf and cr down to baseline ( 1.8)- will set up cath (2) Acute kidney injury superimposed on CKD: Status: Acute (3) Hyperlipidemia: Status: Chronic Qualifiers: Hyperlipidemia type: mixed hyperlipidemia Qualified Code(s): E78.2 - Mixed hyperlipidemia (4) CAD (coronary artery disease): Status: Chronic Qualifiers: Coronary Disease-Associated Artery/Lesion type: [place] artery [place] vs. transplanted heart: [place] heart Associated angina: unspecified whether angina present Qualified Code(s): I25.10 - Atherosclerotic heart disease of [place] coronary artery without angina pectoris (5) Seizure disorder: Status: Chronic (6) Essential hypertension: Status: Chronic (7) Diabetes type 2, controlled: Status: Chronic Qualifiers: Diabetes mellitus extermination inspector insulin use: with longterm use Diabetes mellitus complication status: with hyperglycemia Qualified Code(s): E11.65 - Type 2 diabetes mellitus with hyperglycemia; Z79.4 - intermission coordinator (current) use of insulin
[2023-05-03] MEDS: IMDUR PO SCH (09:57)
--- NOTE | 2023-05-03 10:02 | PCM.PROG ---
Progress Note - Progress Note for Day of Date of Exam: 05/03/23 - Subjective Subjective: MR FAJARDO IS A 58Y/O MALE PATIENT OF OURS. HIS MEDICAL HX INCLUDES: CHF, COPD, CAD S/P CABG, CVA, SEIZURES, HTN, HLD, CKD, DM II, HYPOTHYROIDISM. HE IS CURRENTLY OBSERVATION STATUS FOR EVALUATION AND TREATMENT OF CHF EXACERBATION, ACUTE ON CHRONIC KIDNEY INJURY. TODAY, HE IS ALERT AND ORIENTED, LYING IN BED ON MORNING ROUNDS. HE DENIES CHEST PAIN, COUGH, ABDOMINAL PAIN, BACK PAIN, FEVER, OR NAUSEA/VOMITING THIS MORNING. ON EXAMINATION, HEART IS REGULAR IN RATE AND RHYTHMY. BILATERAL LUNGS ARE NOTED WITH A FEW CRACKLES BILATERALLY. ABDOMEN IS ROUND, SOFT, AND NON-TENDER WITH NORMAL BOWEL SOUNDS NOTED IN ALL QUADRANTS. GOOD RANGE OF MOTION NOTED TO UPPER AND LOWER EXTREMITIES. 1+ PITTING EDEMA TO BILATERAL LOWER EXTREMITIES NOTED. HIS VITALS THIS MORNING ARE: 98.7-93-20-97%-130/75. LABS WERE OBTAINED. WBC 6.8, RBC 3.90, HGB 10.4, HCT 31.8, PLT COUNT 163, SODIUM 141, POTASSIUM 3.5, CHLORIDE 102, BUN 34, CREATININE 2.34, GLUCOSE 97, CALCIUM 8.7, MAGNESIUM 1.6, TOTAL BILI 0.50, AST 21, ALT 23, ALK PHOS 34, BNP >5000, TOTAL PROTEIN 7.0, ALBUMIN 3.6. HIS TROPONINS WERE ELEVATED THROUGHOUT THE NIGHT (138.6, 180.9, 228). EKGS DID NOT REVEAL ANY ACUTE CHANGES. COVID, INFLUENZA, AND RSV NEGATIVE. BLOOD CULTURES WERE SET UP. A CHEST XRAY WAS OBTAINED AND REVEALED: FAINT BILATERAL OPACITIES WHICH MAY REFLECT CHRONIC CHANGES, ATELECTASIS, EDEMA, OR PNEUMONIA. HE IS CURRENTLY RECEIVING LASIX 40MG IV BID, OTBS ACHS, OTBS ACHS, HUMULIN R SLIDING SCALE, LOVENOX 40MG SC DAILY, AND THE POTASSIUM AND MAGNESIUM PROTOCOLS. HIS HOME MEDICATIONS OF ALPRAZOLAM, ASPIRIN, LIPITOR, COREG, PLAVIX, TRICOR, NORCO, SYNTHROID, REGLAN, DILANTIN, ENTRESTO, AND VENLAFAXINE WERE RESUMED. CONSULTED WITH PATIENT AND FEELS THAT ELEVATED TROPONINS ARE DUE TO CHRONIC ISCHEMIA. HE ADDED ISOSORBID 30MG BID AND WILL PLAN ON A HEART CATH AN OUTPATIENT AFTER LABS ARE STABLE. OTHERWISE, WE WILL CONTINUE WITH CURRENT PLAN OF CARE TODAY. WE WILL FOLLOW-UP WITH AM LABS AND CHEST XRAY AND CONTINUE TO MONITOR. TIME SPENT ON CLINICAL ASSESSMENT, REVIEWING LABS AND IMAGING, DECISION MAKING, AND DOCUMENTATION GREATER THAN 45 MINUTES. - Past Medical Family Social History Past Med/Fam/Surg Hx: No changes since H&P Allergies: Allergies morphine Allergy (Verified 05/02/23 05:59) - Review of Systems ROS: No change since H&P - Vital Signs and I&O's Vital Signs: Vital Signs Temperature 97.5 F Temperature 98.7 F Pulse Rate [Left] 97 Pulse Rate [Left] 93 Respiratory Rate 18 Respiratory Rate 20 Blood Pressure [Right Arm] 170/100 Blood Pressure [Right Arm] 166/100 Blood Pressure [Left Arm] 130/75 O2 Sat by Pulse Oximetry 95 O2 Sat by Pulse Oximetry 97 Intake and Output: Intake & Output 04/30/23 05/01/23 05/02/23 05/03/23 11:59 11:59 11:59 11:59 Intake Total 310 / 310 1170 / 1170 Balance 310 / 310 1170 / 1170 - Physical Exam Oriented: Normal Eyes: Normal Ear: Normal Nose: Normal Throat: Normal Respiratory: OTHER (CRACKLES ) Cardiovascular: Edema (BLE 1+ PITTING EDEMA ) : Normal Auscultation: Bowel Sounds: Normal Palpation: Normal Tenderness: Normal Skin: Normal Musculoskeletal: Normal Psychiatric: Normal Mood Description: Calm Affect: Normal Speech Pattern: Clear, Appropriate - Laboratory and Diagnostics Result Diagrams: 05/03/23 05:40 05/03/23 05:40 Labs: 05/01/23 22:53 Blood Blood Culture - Preliminary 05/01/23 22:45 Blood Blood Culture - Preliminary Laboratory WBC 6.8 X10^3/uL (3.6-10.0) 05/03/23 05:40 RBC 3.90 X10^6/uL (4.7-6.0) L 05/03/23 05:40 Hgb 10.4 g/dL (13.5-18.0) L 05/03/23 05:40 Hct 31.8 % (42.0-54.0) L 05/03/23 05:40 MCV 81.7 fL (80.0-100.0) 05/03/23 05:40 MCH 26.6 pg (27.0-34.0) L 05/03/23 05:40 MCHC 32.6 g/dL (33.0-35.0) L 05/03/23 05:40 RDW 15.4 % (11.6-16.5) 05/03/23 05:40 Plt Count 163 X10^3/uL (150.0-450.0) 05/03/23 05:40 MPV 10.0 fL (7.4-11.0) 05/03/23 05:40 Neut % (Auto) 60.3 % (42.0-75.0) 05/03/23 05:40 Lymph % (Auto) 21.2 % (21.0-51.0) 05/03/23 05:40 [place] % (Auto) 13.3 % (0.0-13.0) H 05/03/23 05:40 Eos % (Auto) 3.4 % (0.9-2.9) H 05/03/23 05:40 Baso % (Auto) 1.8 % (0.2-1.0) H 05/03/23 05:40 Neut # (Auto) 4.1 x10^3/uL (2.2-4.8) 05/03/23 05:40 Lymph # (Auto) 1.4 X10^3/uL (1.3-2.9) 05/03/23 05:40 [place] # (Auto) 0.9 x10^3/uL (0.3-0.8) H 05/03/23 05:40 Eos # (Auto) 0.2 x10^3/uL (0.0-0.2) 05/03/23 05:40 Baso # (Auto) 0.1 X10^3/uL (0.0-0.1) 05/03/23 05:40 Absolute Nucleated RBC 0.1 /100WBC 05/03/23 05:40 D-Dimer 0.47 ug/ml (0.0-0.57) 05/01/23 22:45 Sample Site Rr 05/01/23 22:40 ABG pH 7.440 (7.35-7.45) 05/01/23 22:40 ABG pCO2 33.0 mmHg (35.0-45.0) L 05/01/23 22:40 ABG pO2 67.0 mmHg (80.0-100.0) L 05/01/23 22:40 ABG HCO3 22.4 mmol/L (22-26) 05/01/23 22:40 ABG O2 Saturation 94.0 % (90-100) 05/01/23 22:40 ABG Base Excess -1.1 mmol/L (-2.0-2.0) 05/01/23 22:40 Jason Test Pos 05/01/23 22:40 A-a Gradient 41.0 mmHg 05/01/23 22:40 FiO2 21.0 05/01/23 22:40 Blood Gas Comments Dat well ae 05/01/23 22:40 Sodium 141 mmol/L (136-145) 05/03/23 05:40 Corrected Sodium TNP 05/03/23 05:40 Potassium 3.5 mmol/L (3.5-5.1) 05/03/23 05:40 Chloride 102 mmol/L (98-107) 05/03/23 05:40 Carbon Dioxide 24.4 mmol/L (21-32) 05/03/23 05:40 BUN 34 mg/dL (7-18) H 05/03/23 05:40 Creatinine 2.34 mg/dL (0.70-1.30) H 05/03/23 05:40 Est GFR (MDRD) Af Amer 37 (>60) L 05/03/23 05:40 Est GFR (MDRD) Non-Af 31 (>60) L 05/03/23 05:40 Glucose 97 mg/dL (65-99) 05/03/23 05:40 POC Glucose (mg/dL) 98 mg/dL (65-99) 05/03/23 05:24 Lactic Acid 1.6 mmol/L (0.4-2.0) 05/01/23 22:45 Calcium 8.7 mg/dL (8.5-10.1) 05/03/23 05:40 Corrected Calcium TNP 05/03/23 05:40 Magnesium 1.6 mg/dL (2.0-2.9) L 05/03/23 05:40 Total Bilirubin 0.50 mg/dL (0.2-1.0) 05/03/23 05:40 AST 21 Units/L (15-37) 05/03/23 05:40 ALT 23 Units/L (12-78) 05/03/23 05:40 Alkaline Phosphatase 34 Units/L (46-116) L 05/03/23 05:40 Creatine Kinase 74 Units/L (39-308) 05/02/23 05:25 Troponin I High Sens 228.0 ng/L (4.0-60.0) H* 05/03/23 05:40 C-Reactive Protein 5.00 mg/L (0-3.0) H 05/01/23 22:45 B-Natriuretic Peptide > 5000 pg/mL (0-79) H 05/03/23 05:40 Total Protein 7.0 g/dL (6.4-8.2) 05/03/23 05:40 Albumin 3.6 g/dL (3.4-5.0) 05/03/23 05:40 Globulin 3.4 g/dL (2.5-4.5) 05/03/23 05:40 Albumin/Globulin Ratio 1.1 Ratio (1.1-2.1) 05/03/23 05:40 SARS-CoV-2 (PCR) Negative (NEGATIVE) 05/01/23 23:35 Influenza Type A (PCR) Negative (NEGATIVE) 05/01/23 23:35 Influenza Type B (PCR) Negative (NEGATIVE) 05/01/23 23:35 RSV (PCR) Negative (NEGATIVE) 05/01/23 23:35 - Plan (1) CHF exacerbation Status: Acute Qualifiers: Heart failure type: unspecified Plan: LASIX 40MG IV BID, OTBS ACHS, OTBS ACHS, HUMULIN R SLIDING SCALE, IS OSORBIDE 30MG BID. HIS HOME MEDICATIONS OF ALPRAZOLAM, ASPIRIN, LIPITOR, COREG, PLAVIX, TRICOR, NORCO, SYNTHROID, REGLAN, DILANTIN, ENTRESTO, AND VENLAFAXINE WERE RESUMED. CARDIOLOGY CONSULT. REPEAT AM LABS AND CHEST XRAY (2) Acute kidney injury superimposed on CKD Status: Acute (3) Hyperlipidemia Status: Chronic Qualifiers: Hyperlipidemia type: mixed hyperlipidemia Qualified Code(s): E78.2 - Mixed hyperlipidemia (4) CAD (coronary artery disease) Status: Chronic Qualifiers: Coronary Disease-Associated Artery/Lesion type: [place] artery [place] vs. 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
[2023-05-03] MEDS: NORCO 10/325 TAB PO PRN (20:33)
[2023-05-03] MEDS: ALPRAZOLAM ODT PO PRN (20:33)
[2023-05-04 05:25] LABS: BASOPHILS # (AUTO) 0.1 X10^3/uL (0.0-0.1); BASOPHILS % (AUTO) 1.4 % (0.2-1.0); EOSINOPHILS # (AUTO) 0.4 x10^3/uL (0.0-0.2); EOSINOPHILS % (AUTO) 8.7 % (0.9-2.9); HEMATOCRIT 30.3 % (42.0-54.0); HEMOGLOBIN 9.8 g/dL (13.5-18.0); LYMPHOCYTES # (AUTO) 0.9 X10^3/uL (1.3-2.9); LYMPHOCYTES % (AUTO) 19.3 % (21.0-51.0); MEAN CORPUSCULAR HEMOGLOBIN 26.4 pg (27.0-34.0); MEAN CORPUSCULAR HGB CONC 32.3 g/dL (33.0-35.0); MEAN CORPUSCULAR VOLUME 81.5 fL (80.0-100.0); MEAN PLATELET VOLUME 10.1 fL (7.4-11.0); MONOCYTES # (AUTO) 0.8 x10^3/uL (0.3-0.8); MONOCYTES % (AUTO) 16.6 % (0.0-13.0); NEUTROPHILS # (AUTO) 2.5 x10^3/uL (2.2-4.8); PLATELET COUNT 148 X10^3/uL (150.0-450.0); RED BLOOD COUNT 3.72 X10^6/uL (4.7-6.0); RED CELL DISTRIBUTION WIDTH 15.4 % (11.6-16.5); WHITE BLOOD COUNT 4.7 X10^3/uL (3.6-10.0)
[2023-05-04 05:34] LABS: ALANINE AMINOTRANSFERASE 18 Units/L (12-78); ALBUMIN 3.1 g/dL (3.4-5.0); ALKALINE PHOSPHATASE 27 Units/L (46-116); ASPARTATE AMINO TRANSFERASE 16 Units/L (15-37); BLOOD UREA NITROGEN 34 mg/dL (7-18); CALCIUM 8.2 mg/dL (8.5-10.1); CARBON DIOXIDE 27.4 mmol/L (21-32); CHLORIDE 104 mmol/L (98-107); COR CA(FOR HYPOALB) 8.9 mg/dL (8.5-10.1); CREATININE 2.31 mg/dL (0.70-1.30); GLUCOSE 66 mg/dL (65-99); MAGNESIUM 1.6 mg/dL (2.0-2.9); POTASSIUM 3.6 mmol/L (3.5-5.1); SODIUM 141 mmol/L (136-145); TOTAL PROTEIN 6.3 g/dL (6.4-8.2); eGFR NON BLACK RACES 31 (>60)
[2023-05-04] MEDS ORDERED: CONSULT PHARMACY - POTASSIUM & MAGNESIUM XX SCH (07:00)
--- NOTE | 2023-05-04 07:19 | RAD ---
EXAM:AP chestHISTORY:Short of breathCOMPARISON:05/03/2023FINDINGS:Card iac enlargement. Increasing diffuse opacity over the right lower chest is noted partly obscuring the right lower lobe and diaphragm. Similar indistinct opacity is suggested in the retrocardiac left base.IMPRESSION:Increasing opacity in both lower lungs, right greater than left, concerning for developing pneumonia, atelectasis and suspect right pleural effusion.THIS IS AN ELECTRONICALLY VERIFIED FINAL REPORT05/04/2023 7:15 AM - Electronically signed by Nolan Ramos MD
[2023-05-04] MEDS: ASPIRIN 81 MG CHEWTAB PO SCH (08:27)
[2023-05-04] MEDS: COLACE CAP 100 MG PO PRN (08:31)
[2023-05-04] MEDS: K-DUR TAB 20 MEQ PO SCH (10:31)
[2023-05-04] MEDS: MAG-OX TAB PO SCH (10:32)
--- NOTE | 2023-05-04 11:20 | PCM.PROG ---
Progress Note Progress Note for Day of Date of Exam: 05/04/23 Subjective Subjective: Patient seen at bedside, no acute events overnight. He is resting in bed. He denies any chest pain or SOB. He has been ambulating to the bathroom. He is currently admitted for CHF exacerbation and acute on chronic CKD. Cardiology is also following. Labs/imaging reviewed - BNP 4540 Mag 1.6 BUN/Cr 34/2.31 K:3.6 - CXR: increasing bilateral opacities, concerning for pneumonia - ECHO: EF 20% Plan: monitor I&Os, daily weight. Patient has had good UOP. Denies cardiopulmonary symptoms. Continue medications as per cardiology. Replace K and Mag as per protocol. Will add doxycycline for pneumonia coverage. Monitor respiratory symptoms. Monitor AM labs/imaging. Past Medical Family Social History Past Med/Fam/Surg Hx: No changes since H&P Allergies: Allergies morphine Allergy (Verified 05/02/23 05:59) Review of Systems ROS: No change since H&P Vital Signs and I&O's Vital Signs: Vital Signs Temperature 98.0 F Temperature 97.5 F Pulse Rate [Left] 86 Pulse Rate [Left] 83 Respiratory Rate 18 Respiratory Rate 20 Blood Pressure [Right Arm] 115/71 Blood Pressure [Left Arm] 111/64 O2 Sat by Pulse Oximetry 97 O2 Sat by Pulse Oximetry 95 Intake and Output: Intake & Output 05/01/23 05/02/23 05/03/23 05/04/23 23:59 23:59 23:59 23:59 Intake Total 1070 / 1070 1020 / 1020 132 / 132 Output Total 1600 / 1600 1250 / 1250 Balance 1070 / 1070 -580 / -580 -1118 / -1118 Physical Exam Oriented: Normal Eyes: Normal Ear: Normal Nose: Normal Throat: Normal Respiratory: Generalized and Diminished Cardiovascular: Edema (BLE 1+ PITTING EDEMA ) Auscultation: Bowel Sounds: Normal Tenderness: Normal Skin: Normal Musculoskeletal: Normal Psychiatric: Normal Mood Description: Calm Affect: Normal Speech Pattern: Clear and Appropriate Laboratory and Diagnostics 05/04/23 04:39 05/04/23 04:39 Labs: 05/01/23 22:53 Blood Blood Culture - Preliminary 05/01/23 22:45 Blood Blood Culture - Preliminary Laboratory WBC 4.7 X10^3/uL (3.6-10.0) 05/04/23 04:39 RBC 3.72 X10^6/uL (4.7-6.0) L 05/04/23 04:39 Hgb 9.8 g/dL (13.5-18.0) L 05/04/23 04:39 Hct 30.3 % (42.0-54.0) L 05/04/23 04:39 MCV 81.5 fL (80.0-100.0) 05/04/23 04:39 MCH 26.4 pg (27.0-34.0) L 05/04/23 04:39 MCHC 32.3 g/dL (33.0-35.0) L 05/04/23 04:39 RDW 15.4 % (11.6-16.5) 05/04/23 04:39 Plt Count 148 X10^3/uL (150.0-450.0) L 05/04/23 04:39 MPV 10.1 fL (7.4-11.0) 05/04/23 04:39 Neut % (Auto) 54.0 % (42.0-75.0) 05/04/23 04:39 Lymph % (Auto) 19.3 % (21.0-51.0) L 05/04/23 04:39 [place] % (Auto) 16.6 % (0.0-13.0) H 05/04/23 04:39 Eos % (Auto) 8.7 % (0.9-2.9) H 05/04/23 04:39 Baso % (Auto) 1.4 % (0.2-1.0) H 05/04/23 04:39 Neut # (Auto) 2.5 x10^3/uL (2.2-4.8) 05/04/23 04:39 Lymph # (Auto) 0.9 X10^3/uL (1.3-2.9) L 05/04/23 04:39 [place] # (Auto) 0.8 x10^3/uL (0.3-0.8) 05/04/23 04:39 Eos # (Auto) 0.4 x10^3/uL (0.0-0.2) H 05/04/23 04:39 Baso # (Auto) 0.1 X10^3/uL (0.0-0.1) 05/04/23 04:39 Absolute Nucleated RBC 0.1 /100WBC 05/04/23 04:39 D-Dimer 0.47 ug/ml (0.0-0.57) 05/01/23 22:45 Sample Site Rr 05/01/23 22:40 ABG pH 7.440 (7.35-7.45) 05/01/23 22:40 ABG pCO2 33.0 mmHg (35.0-45.0) L 05/01/23 22:40 ABG pO2 67.0 mmHg (80.0-100.0) L 05/01/23 22:40 ABG HCO3 22.4 mmol/L (22-26) 05/01/23 22:40 ABG O2 Saturation 94.0 % (90-100) 05/01/23 22:40 ABG Base Excess -1.1 mmol/L (-2.0-2.0) 05/01/23 22:40 Jason Test Pos 05/01/23 22:40 A-a Gradient 41.0 mmHg 05/01/23 22:40 FiO2 21.0 05/01/23 22:40 Blood Gas Comments Dat well ae 05/01/23 22:40 Sodium 141 mmol/L (136-145) 05/04/23 04:39 Corrected Sodium TNP 05/04/23 04:39 Potassium 3.6 mmol/L (3.5-5.1) 05/04/23 04:39 Chloride 104 mmol/L (98-107) 05/04/23 04:39 Carbon Dioxide 27.4 mmol/L (21-32) 05/04/23 04:39 BUN 34 mg/dL (7-18) H 05/04/23 04:39 Creatinine 2.31 mg/dL (0.70-1.30) H 05/04/23 04:39 Est GFR (MDRD) Af Amer 38 (>60) L 05/04/23 04:39 Est GFR (MDRD) Non-Af 31 (>60) L 05/04/23 04:39 Glucose 66 mg/dL (65-99) 05/04/23 04:39 POC Glucose (mg/dL) 129 mg/dL (65-99) H 05/04/23 06:24 Lactic Acid 1.6 mmol/L (0.4-2.0) 05/01/23 22:45 Calcium 8.2 mg/dL (8.5-10.1) L 05/04/23 04:39 Corrected Calcium 8.9 mg/dL (8.5-10.1) 05/04/23 04:39 Magnesium 1.6 mg/dL (2.0-2.9) L 05/04/23 04:39 Total Bilirubin 0.40 mg/dL (0.2-1.0) 05/04/23 04:39 AST 16 Units/L (15-37) 05/04/23 04:39 ALT 18 Units/L (12-78) 05/04/23 04:39 Alkaline Phosphatase 27 Units/L (46-116) L 05/04/23 04:39 Creatine Kinase 74 Units/L (39-308) 05/02/23 05:25 Troponin I High Sens 228.0 ng/L (4.0-60.0) H* 05/03/23 05:40 C-Reactive Protein 5.00 mg/L (0-3.0) H 05/01/23 22:45 B-Natriuretic Peptide 4540 pg/mL (0-79) H 05/04/23 04:39 Total Protein 6.3 g/dL (6.4-8.2) L 05/04/23 04:39 Albumin 3.1 g/dL (3.4-5.0) L 05/04/23 04:39 Globulin 3.2 g/dL (2.5-4.5) 05/04/23 04:39 Albumin/Globulin Ratio 1.0 Ratio (1.1-2.1) L 05/04/23 04:39 SARS-CoV-2 (PCR) Negative (NEGATIVE) 05/01/23 23:35 Influenza Type A (PCR) Negative (NEGATIVE) 05/01/23 23:35 Influenza Type B (PCR) Negative (NEGATIVE) 05/01/23 23:35 RSV (PCR) Negative (NEGATIVE) 05/01/23 23:35 Plan (1) Pneumonia: Status: Acute (2) CHF exacerbation: Status: Acute Qualifiers: Heart failure type: unspecified (3) Acute kidney injury superimposed on CKD: Status: Acute (4) Hyperlipidemia: Status: Chronic Qualifiers: Hyperlipidemia type: mixed hyperlipidemia Qualified Code(s): E78.2 - Mixed hyperlipidemia (5) CAD (coronary artery disease): Status: Chronic Qualifiers: Associated angina: unspecified whether angina present Coronary Disease- Associated Artery/Lesion type: [place] artery [place] vs. transplanted heart: [place] heart Qualified Code(s): I25.10 - Atherosclerotic heart disease of [place] coronary artery without angina pectoris (6) Seizure disorder: Status: Chronic (7) Essential hypertension: Status: Chronic (8) Diabetes type 2, controlled: Status: Chronic Qualifiers: Diabetes mellitus complication status: with hyperglycemia Diabetes mellitus alf insulin use: with alf use Qualified Code(s): E11.65 - Type 2 diabetes mellitus with hyperglycemia; Z79.4 - nursing home (current) use of insulin
[2023-05-04] MEDS: VIBRAMYCIN PO SCH (11:59)
[2023-05-04] MEDS: XOPENEX 1.25 MG/3 ML NEBULE NEB SCH (12:17)
[2023-05-04] MEDS: MILK OF MAGNESIA PO PRN (20:33)
--- NOTE | 2023-05-05 05:30 | RAD ---
EXAM: CHEST, 1 VIEW HISTORY: SOB; HX: CVA, HIATAL HERNIA, DM SX: CABG COMPARISON: 05/04/2023 FINDINGS: The trachea is midline. The cardiac silhouette is mildly enlarged. Changes of prior CABG surgery.. Right basilar opacity unchanged. Small right pleural effusion. No pneumothorax.. The bony thorax is unremarkable. IMPRESSION: Mild cardiomegaly. Increased opacity within the right lung base due to subsegmental atelectasis and/or infiltrate with s mall right pleural effusion. No significant change from 05/04/2023 THIS IS AN ELECTRONICALLY VERIFIED FINAL REPORT 05/05/2023 5:26 AM - Electronically signed by Manuel Peng MD
[2023-05-05 05:53] LABS: BASOPHILS # (AUTO) 0.1 X10^3/uL (0.0-0.1); BASOPHILS % (AUTO) 1.1 % (0.2-1.0); EOSINOPHILS # (AUTO) 0.4 x10^3/uL (0.0-0.2); EOSINOPHILS % (AUTO) 7.8 % (0.9-2.9); HEMATOCRIT 29.5 % (42.0-54.0); HEMOGLOBIN 9.5 g/dL (13.5-18.0); LYMPHOCYTES # (AUTO) 0.8 X10^3/uL (1.3-2.9); LYMPHOCYTES % (AUTO) 15.8 % (21.0-51.0); MEAN CORPUSCULAR HEMOGLOBIN 26.3 pg (27.0-34.0); MEAN CORPUSCULAR HGB CONC 32.3 g/dL (33.0-35.0); MEAN CORPUSCULAR VOLUME 81.5 fL (80.0-100.0); MEAN PLATELET VOLUME 10.1 fL (7.4-11.0); MONOCYTES # (AUTO) 0.7 x10^3/uL (0.3-0.8); MONOCYTES % (AUTO) 14.2 % (0.0-13.0); NEUTROPHILS # (AUTO) 3.1 x10^3/uL (2.2-4.8); NEUTROPHILS % (AUTO) 61.1 % (42.0-75.0); PLATELET COUNT 139 X10^3/uL (150.0-450.0); RED BLOOD COUNT 3.62 X10^6/uL (4.7-6.0); RED CELL DISTRIBUTION WIDTH 15.2 % (11.6-16.5)
[2023-05-05 06:06] LABS: ALBUMIN 3.3 g/dL (3.4-5.0); CALCIUM 8.2 mg/dL (8.5-10.1); COR CA(FOR HYPOALB) 8.8 mg/dL (8.5-10.1); CREATININE 2.28 mg/dL (0.70-1.30); POTASSIUM 3.8 mmol/L (3.5-5.1); TOTAL PROTEIN 6.4 g/dL (6.4-8.2)
[2023-05-05] MEDS ORDERED: CONSULT PHARMACY - POTASSIUM & MAGNESIUM XX SCH (07:00)
[2023-05-05] MEDS: K-DUR TAB 20 MEQ PO SCH (08:43)
--- NOTE | 2023-05-05 11:07 | PCM.PROG ---
Progress Note Progress Note for Day of Date of Exam: 05/05/23 Subjective Subjective: Patient seen at bedside, no acute events overnight. He reports intermittent SOB, has not been requiring oxygen. Denies chest pain. He has been ambulating to the bathroom. He is currently admitted for CHF exacerbation and acute on chronic CKD. Cardiology is also following. Labs/imaging reviewed - BNP 4070 Hgb 9.5 BUN/Cr: 34/2.28 - CXR: Right lower lobe opacity - ECHO: EF 20% Plan: monitor I&Os, daily weight. Patient has had good UOP. Continue medications as per cardiology. Replace K and Mag as per protocol. Continue doxycycline for pneumonia coverage. Monitor respiratory symptoms. Monitor AM labs/imaging. Past Medical Family Social History Past Med/Fam/Surg Hx: No changes since H&P Allergies: Allergies morphine Allergy (Verified 05/02/23 05:59) Review of Systems ROS: No change since H&P Vital Signs and I&O's Vital Signs: Vital Signs Temperature 97.0 F Temperature 97.7 F Pulse Rate [Left] 88 Pulse Rate [Left] 83 Respiratory Rate 20 Respiratory Rate 20 Blood Pressure [Left Arm] 158/95 Blood Pressure [Left Arm] 139/87 O2 Sat by Pulse Oximetry 98 O2 Sat by Pulse Oximetry 99 Intake and Output: Intake & Output 05/02/23 05/03/23 05/04/23 05/05/23 23:59 23:59 23:59 23:59 Intake Total 1070 / 1070 1020 / 1020 742 / 742 470 / 470 Output Total 1600 / 1600 3250 / 3250 1325 / 1325 Balance 1070 / 1070 -580 / -580 -2508 / -2508 -855 / -855 Physical Exam Oriented: Normal Eyes: Normal Ear: Normal Nose: Normal Throat: Normal Respiratory: Generalized and Diminished Cardiovascular: Edema (BLE 1+ PITTING EDEMA ) Auscultation: Bowel Sounds: Normal Tenderness: Normal Skin: Normal Musculoskeletal: Normal Psychiatric: Normal Mood Description: Calm Affect: Normal Speech Pattern: Clear and Appropriate Laboratory and Diagnostics 05/05/23 05:14 05/05/23 05:14 Labs: 05/01/23 22:53 Blood Blood Culture - Preliminary 05/01/23 22:45 Blood Blood Culture - Preliminary Laboratory WBC 5.0 X10^3/uL (3.6-10.0) 05/05/23 05:14 RBC 3.62 X10^6/uL (4.7-6.0) L 05/05/23 05:14 Hgb 9.5 g/dL (13.5-18.0) L 05/05/23 05:14 Hct 29.5 % (42.0-54.0) L 05/05/23 05:14 MCV 81.5 fL (80.0-100.0) 05/05/23 05:14 MCH 26.3 pg (27.0-34.0) L 05/05/23 05:14 MCHC 32.3 g/dL (33.0-35.0) L 05/05/23 05:14 RDW 15.2 % (11.6-16.5) 05/05/23 05:14 Plt Count 139 X10^3/uL (150.0-450.0) L 05/05/23 05:14 MPV 10.1 fL (7.4-11.0) 05/05/23 05:14 Neut % (Auto) 61.1 % (42.0-75.0) 05/05/23 05:14 Lymph % (Auto) 15.8 % (21.0-51.0) L 05/05/23 05:14 [place] % (Auto) 14.2 % (0.0-13.0) H 05/05/23 05:14 Eos % (Auto) 7.8 % (0.9-2.9) H 05/05/23 05:14 Baso % (Auto) 1.1 % (0.2-1.0) H 05/05/23 05:14 Neut # (Auto) 3.1 x10^3/uL (2.2-4.8) 05/05/23 05:14 Lymph # (Auto) 0.8 X10^3/uL (1.3-2.9) L 05/05/23 05:14 [place] # (Auto) 0.7 x10^3/uL (0.3-0.8) 05/05/23 05:14 Eos # (Auto) 0.4 x10^3/uL (0.0-0.2) H 05/05/23 05:14 Baso # (Auto) 0.1 X10^3/uL (0.0-0.1) 05/05/23 05:14 Absolute Nucleated RBC 0.1 /100WBC 05/05/23 05:14 D-Dimer 0.47 ug/ml (0.0-0.57) 05/01/23 22:45 Sample Site Rr 05/01/23 22:40 ABG pH 7.440 (7.35-7.45) 05/01/23 22:40 ABG pCO2 33.0 mmHg (35.0-45.0) L 05/01/23 22:40 ABG pO2 67.0 mmHg (80.0-100.0) L 05/01/23 22:40 ABG HCO3 22.4 mmol/L (22-26) 05/01/23 22:40 ABG O2 Saturation 94.0 % (90-100) 05/01/23 22:40 ABG Base Excess -1.1 mmol/L (-2.0-2.0) 05/01/23 22:40 Jason Test Pos 05/01/23 22:40 A-a Gradient 41.0 mmHg 05/01/23 22:40 FiO2 21.0 05/01/23 22:40 Blood Gas Comments Dat well ae 05/01/23 22:40 Sodium 141 mmol/L (136-145) 05/05/23 05:14 Corrected Sodium 142 mmol/L (136-145) 05/05/23 05:14 Potassium 3.8 mmol/L (3.5-5.1) 05/05/23 05:14 Chloride 103 mmol/L (98-107) 05/05/23 05:14 Carbon Dioxide 28.0 mmol/L (21-32) 05/05/23 05:14 BUN 34 mg/dL (7-18) H 05/05/23 05:14 Creatinine 2.28 mg/dL (0.70-1.30) H 05/05/23 05:14 Est GFR (MDRD) Af Amer 38 (>60) L 05/05/23 05:14 Est GFR (MDRD) Non-Af 32 (>60) L 05/05/23 05:14 Glucose 137 mg/dL (65-99) H 05/05/23 05:14 POC Glucose (mg/dL) 139 mg/dL (65-99) H 05/05/23 05:41 Lactic Acid 1.6 mmol/L (0.4-2.0) 05/01/23 22:45 Calcium 8.2 mg/dL (8.5-10.1) L 05/05/23 05:14 Corrected Calcium 8.8 mg/dL (8.5-10.1) 05/05/23 05:14 Magnesium 2.0 mg/dL (2.0-2.9) 05/05/23 05:14 Total Bilirubin 0.50 mg/dL (0.2-1.0) 05/05/23 05:14 AST 16 Units/L (15-37) 05/05/23 05:14 ALT 17 Units/L (12-78) 05/05/23 05:14 Alkaline Phosphatase 32 Units/L (46-116) L 05/05/23 05:14 Creatine Kinase 74 Units/L (39-308) 05/02/23 05:25 Troponin I High Sens 228.0 ng/L (4.0-60.0) H* 05/03/23 05:40 C-Reactive Protein 5.00 mg/L (0-3.0) H 05/01/23 22:45 B-Natriuretic Peptide 4070 pg/mL (0-79) H 05/05/23 05:14 Total Protein 6.4 g/dL (6.4-8.2) 05/05/23 05:14 Albumin 3.3 g/dL (3.4-5.0) L 05/05/23 05:14 Globulin 3.1 g/dL (2.5-4.5) 05/05/23 05:14 Albumin/Globulin Ratio 1.1 Ratio (1.1-2.1) 05/05/23 05:14 SARS-CoV-2 (PCR) Negative (NEGATIVE) 05/01/23 23:35 Influenza Type A (PCR) Negative (NEGATIVE) 05/01/23 23:35 Influenza Type B (PCR) Negative (NEGATIVE) 05/01/23 23:35 RSV (PCR) Negative (NEGATIVE) 05/01/23 23:35 Plan (1) Pneumonia: Status: Acute (2) CHF exacerbation: Status: Acute Qualifiers: Heart failure type: unspecified (3) Acute kidney injury superimposed on CKD: Status: Acute (4) Hyperlipidemia: Status: Chronic Qualifiers: Hyperlipidemia type: mixed hyperlipidemia Qualified Code(s): E78.2 - Mixed hyperlipidemia (5) CAD (coronary artery disease): Status: Chronic Qualifiers: Coronary Disease-Associated Artery/Lesion type: [place] artery [place] vs. 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
[2023-05-06 05:19] LABS: BASOPHILS # (AUTO) 0.1 X10^3/uL (0.0-0.1); BASOPHILS % (AUTO) 1.1 % (0.2-1.0); EOSINOPHILS # (AUTO) 0.4 x10^3/uL (0.0-0.2); EOSINOPHILS % (AUTO) 8.4 % (0.9-2.9); HEMATOCRIT 31.4 % (42.0-54.0); HEMOGLOBIN 10.2 g/dL (13.5-18.0); LYMPHOCYTES % (AUTO) 19.6 % (21.0-51.0); MEAN CORPUSCULAR HEMOGLOBIN 26.6 pg (27.0-34.0); MEAN CORPUSCULAR HGB CONC 32.5 g/dL (33.0-35.0); MEAN CORPUSCULAR VOLUME 81.9 fL (80.0-100.0); MEAN PLATELET VOLUME 10.9 fL (7.4-11.0); MONOCYTES # (AUTO) 0.8 x10^3/uL (0.3-0.8); MONOCYTES % (AUTO) 14.2 % (0.0-13.0); NEUTROPHILS % (AUTO) 56.7 % (42.0-75.0); PLATELET COUNT 142 X10^3/uL (150.0-450.0); RED BLOOD COUNT 3.84 X10^6/uL (4.7-6.0); RED CELL DISTRIBUTION WIDTH 15.6 % (11.6-16.5); WHITE BLOOD COUNT 5.3 X10^3/uL (3.6-10.0)
[2023-05-06 05:38] LABS: ALBUMIN 3.3 g/dL (3.4-5.0); CALCIUM 8.1 mg/dL (8.5-10.1); CARBON DIOXIDE 29.6 mmol/L (21-32); COR CA(FOR HYPOALB) 8.7 mg/dL (8.5-10.1); CREATININE 2.37 mg/dL (0.70-1.30); TOTAL PROTEIN 6.6 g/dL (6.4-8.2)
--- NOTE | 2023-05-06 06:21 | RAD ---
EXAM:Portable chestHISTORY:Shortness of breathCOMPARISON:05/05/2019FINDINGS:Francheska ent is status post median sternotomy and CABG. Heart remains enlarged. No definite congestive heart failure is identified. The right lung and left upper lung bucio appear clear on today's examination. There is increasing density in the retrocardiac area of the left lower lobe obscuring the left hemidiaphragm. This could be on the basis of pleural fluid, atelectasis, consolidation or combination. Upright PA and lateral chest examination may be of further diagnostic value. Bony thorax is unremarkable.IMPRESSION:Cardiomegaly without congestive heart failureIncreasing density retrocardiac area of the left lower lobe obscuring the left hemidiaphragm. Differential diagnosis as aboveTHIS IS AN ELECTRONICALLY VERIFIED FINAL REPORT05/06/2023 6:18 AM - Electronically signed by En Uribe MD
--- NOTE | 2023-05-06 08:18 | NOTE.SOAP ---
Soap Note Note for Day of Date of Exam: 05/06/23 Subjective Data Subjective Data: sob improved,edema better but still present-no cp Objective Data Objective Data: 130/70 p 79- I/O over weekend - 4liters still w mild JVD, minimal fluid in lungs- 1plus edema L>R labs: cr 2.3 stable- hct 31 bnp < 4000- wa s> 5000 Assessment Assessment: EF 20% post cabg- chf improving, cr 2.3 (low cr 1.7-1.8 last month ) -steady throughout hospitilization and maybe at new baseline Plan Plan: push coreg- cont diuresis- on entresto/imdur- no naman as cr > 2.0- will try to arrange cath prob saturday ( will see about transfer to [facility] [place])
[2023-05-06] MEDS: COREG TAB 6.25 MG PO SCH (09:44)
[2023-05-06] MEDS: TRICOR TAB 48 MG PO SCH (10:57)
--- NOTE | 2023-05-06 13:18 | PCM.PROG ---
Progress Note - Progress Note for Day of Date of Exam: 05/06/23 - Subjective Subjective: MR FAJARDO IS A 58Y/O MALE PATIENT OF OURS. HIS MEDICAL HX INCLUDES: CHF, COPD, CAD S/P CABG, CVA, SEIZURES, HTN, HLD, CKD, DM II, HYPOTHYROIDISM. HE IS CURRENTLY INPATIENT STATUS FOR TREATMENT OF CHF EXACERBATION, ACUTE ON CHRONIC KIDNEY INJURY. TODAY, HE IS ALERT AND ORIENTED, LYING IN BED ON MORNING ROUNDS. HE DENIES CHEST PAIN, COUGH, ABDOMINAL PAIN, BACK PAIN, FEVER, OR NAUSEA/VOMITING THIS MORNING. ON EXAMINATION, HEART IS REGULAR IN RATE AND RHYTHM. BILATERAL LUNGS ARE NOTED WITH DIMINISHED LUNG SOUNDS THROUGHOUT. ABDOMEN IS ROUND, SOFT, AND NON-TENDER WITH NORMAL BOWEL SOUNDS NOTED IN ALL QUADRANTS. GOOD RANGE OF MOTION NOTED TO UPPER AND LOWER EXTREMITIES. 1+ PITTING EDEMA TO BILATERAL LOWER EXTREMITIES NOTED. HIS VITALS THIS MORNING ARE: 97.1-85-18-96%-126/73. LABS WERE OBTAINED. WBC 5.3, RBC 3.84, HGB 10.2, HCT 31.4, PLT COUNT 142, SODIUM 139, POTASSIUM 4.0, CHLORIDE 102, BUN 36, CREATININE 2.37, GLUCOSE 138, CALCIUM 8.1, TOTAL BILI 0.40, AST 14, ALT 19, ALK PHOS 38, BN P 4030, TOTAL PROTEIN 6.6, ALBUMIN 3.3. COVID, INFLUENZA, AND RSV NEGATIVE. BLOOD CULTURES ARE NEGATIVE. A CHEST XRAY WAS OBTAINED AND REVEALED: PATIENT IS STATUS POST MEDIAN STERNOTOMY AND CABG. HEART REMAINS ENLARGED. NO DEFINITE CONGESTIVE HEART FAILURE IS IDENTIFIED. THE RIGHT LUNG AND LEFT UPPER LUNG [place] APPEAR CLEAR ON TODAY'S EXAMINATION. THERE IS INCREASING DENSITY IN THE RETROCARDIAC AREA OF THE LEFT LOWER LOBE OBSCURING THE LEFT HEMIDIAPHRAGM. THIS COULD BE ON THE BASIS OF PLEURAL FLUID, ATELECTASIS, CONSOLIDATION OR COMBINATION. HE IS CURRENTLY RECEIVING LASIX 40MG IV BID, OTBS ACHS, OTBS ACHS, HUMULIN R SLIDING SCALE, LOVENOX 40MG SC DAILY, ISOSORBIDE, AND THE POTASSIUM A ND MAGNESIUM PROTOCOLS. HIS HOME MEDICATIONS OF ALPRAZOLAM, ASPIRIN, LIPITOR, COREG, PLAVIX, TRICOR, NORCO, SYNTHROID, REGLAN, DILANTIN, ENTRESTO, AND VENLAFAXINE WERE RESUMED. CONSULTED WITH PATIENT AND PLANS FOR TRANSFER TO [facility] IN THE MORNING FOR HEART CATH. OTHERWISE, WE WILL CONTINUE WITH CURRENT PLAN OF CARE TODAY. WE WILL FOLLOW-UP WITH AM LABS AND CHEST XRAY AND CONTINUE TO MONITOR. TIME SPENT ON CLINICAL ASSESSMENT, REVIEWING LABS AND IMAGING, DECISION MAKING, AND DOCUMENTATION GREATER THAN 45 MINUTES. - Past Medical Family Social History Past Med/Fam/Surg Hx: No changes since H&P Allergies: Allergies morphine Allergy (Verified 05/02/23 05:59) - Review of Systems ROS: No change since H&P - Vital Signs and I&O's Vital Signs: Vital Signs Temperature 97.1 F Pulse Rate [Left] 85 Respiratory Rate 18 Blood Pressure [Right Arm] 126/73 O2 Sat by Pulse Oximetry 96 Intake and Output: Intake & Output 05/04/23 05/05/23 05/06/23 05/07/23 11:59 11:59 11:59 11:59 Intake Total 742 / 742 1080 / 1080 1060 / 1060 Output Total 2850 / 2850 3325 / 3325 2250 / 2250 Balance -2108 / -2108 -2245 / -2245 -1190 / -1190 - Physical Exam Oriented: Normal Eyes: Normal Ear: Normal Nose: Normal Throat: Normal Respiratory: Generalized, Diminished Cardiovascular: Edema (BLE 1+ PITTING EDEMA) : Normal Auscultation: Bowel Sounds: Normal Palpation: Normal Tenderness: Normal Skin: Normal Musculoskeletal: Normal Psychiatric: Normal Mood Description: Calm Affect: Normal Speech Pattern: Clear, Appropriate - Laboratory and Diagnostics Result Diagrams: 05/06/23 04:21 05/06/23 04:21 Labs: 05/01/23 22:53 Blood Blood Culture - Preliminary 05/01/23 22:45 Blood Blood Culture - Preliminary Laboratory WBC 5.3 X10^3/uL (3.6-10.0) 05/06/23 04:21 RBC 3.84 X10^6/uL (4.7-6.0) L 05/06/23 04:21 Hgb 10.2 g/dL (13.5-18.0) L 05/06/23 04:21 Hct 31.4 % (42.0-54.0) L 05/06/23 04:21 MCV 81.9 fL (80.0-100.0) 05/06/23 04:21 MCH 26.6 pg (27.0-34.0) L 05/06/23 04:21 MCHC 32.5 g/dL (33.0-35.0) L 05/06/23 04:21 RDW 15.6 % (11.6-16.5) 05/06/23 04:21 Plt Count 142 X10^3/uL (150.0-450.0) L 05/06/23 04:21 MPV 10.9 fL (7.4-11.0) 05/06/23 04:21 Neut % (Auto) 56.7 % (42.0-75.0) 05/06/23 04:21 Lymph % (Auto) 19.6 % (21.0-51.0) L 05/06/23 04:21 [place] % (Auto) 14.2 % (0.0-13.0) H 05/06/23 04:21 Eos % (Auto) 8.4 % (0.9-2.9) H 05/06/23 04:21 Baso % (Auto) 1.1 % (0.2-1.0) H 05/06/23 04:21 Neut # (Auto) 3.0 x10^3/uL (2.2-4.8) 05/06/23 04:21 Lymph # (Auto) 1.0 X10^3/uL (1.3-2.9) L 05/06/23 04:21 [place] # (Auto) 0.8 x10^3/uL (0.3-0.8) 05/06/23 04:21 Eos # (Auto) 0.4 x10^3/uL (0.0-0.2) H 05/06/23 04:21 Baso # (Auto) 0.1 X10^3/uL (0.0-0.1) 05/06/23 04:21 Absolute Nucleated RBC 0.1 /100WBC 05/06/23 04:21 D-Dimer 0.47 ug/ml (0.0-0.57) 05/01/23 22:45 Sample Site Rr 05/01/23 22:40 ABG pH 7.440 (7.35-7.45) 05/01/23 22:40 ABG pCO2 33.0 mmHg (35.0-45.0) L 05/01/23 22:40 ABG pO2 67.0 mmHg (80.0-100.0) L 05/01/23 22:40 ABG HCO3 22.4 mmol/L (22-26) 05/01/23 22:40 ABG O2 Saturation 94.0 % (90-100) 05/01/23 22:40 ABG Base Excess -1.1 mmol/L (-2.0-2.0) 05/01/23 22:40 Jason Test Pos 05/01/23 22:40 A-a Gradient 41.0 mmHg 05/01/23 22:40 FiO2 21.0 05/01/23 22:40 Blood Gas Comments Dat well ae 05/01/23 22:40 Sodium 139 mmol/L (136-145) 05/06/23 04:21 Corrected Sodium 140 mmol/L (136-145) 05/06/23 04:21 Potassium 4.0 mmol/L (3.5-5.1) 05/06/23 04:21 Chloride 102 mmol/L (98-107) 05/06/23 04:21 Carbon Dioxide 29.6 mmol/L (21-32) 05/06/23 04:21 BUN 36 mg/dL (7-18) H 05/06/23 04:21 Creatinine 2.37 mg/dL (0.70-1.30) H 05/06/23 04:21 Est GFR (MDRD) Af Amer 36 (>60) L 05/06/23 04:21 Est GFR (MDRD) Non-Af 30 (>60) L 05/06/23 04:21 Glucose 138 mg/dL (65-99) H 05/06/23 04:21 POC Glucose (mg/dL) 196 mg/dL (65-99) H 05/06/23 11:10 Lactic Acid 1.6 mmol/L (0.4-2.0) 05/01/23 22:45 Calcium 8.1 mg/dL (8.5-10.1) L 05/06/23 04:21 Corrected Calcium 8.7 mg/dL (8.5-10.1) 05/06/23 04:21 Magnesium 2.0 mg/dL (2.0-2.9) 05/05/23 05:14 Total Bilirubin 0.40 mg/dL (0.2-1.0) 05/06/23 04:21 AST 14 Units/L (15-37) L 05/06/23 04:21 ALT 19 Units/L (12-78) 05/06/23 04:21 Alkaline Phosphatase 38 Units/L (46-116) L 05/06/23 04:21 Creatine Kinase 74 Units/L (39-308) 05/02/23 05:25 Troponin I High Sens 228.0 ng/L (4.0-60.0) H* 05/03/23 05:40 C-Reactive Protein 5.00 mg/L (0-3.0) H 05/01/23 22:45 B-Natriuretic Peptide 4030 pg/mL (0-79) H 05/06/23 04:21 Total Protein 6.6 g/dL (6.4-8.2) 05/06/23 04:21 Albumin 3.3 g/dL (3.4-5.0) L 05/06/23 04:21 Globulin 3.3 g/dL (2.5-4.5) 05/06/23 04:21 Albumin/Globulin Ratio 1.0 Ratio (1.1-2.1) L 05/06/23 04:21 SARS-CoV-2 (PCR) Negative (NEGATIVE) 05/01/23 23:35 Influenza Type A (PCR) Negative (NEGATIVE) 05/01/23 23:35 Influenza Type B (PCR) Negative (NEGATIVE) 05/01/23 23:35 RSV (PCR) Negative (NEGATIVE) 05/01/23 23:35 - Plan (1) CHF exacerbation Status: Acute Qualifiers: Heart failure type: unspecified Plan: LASIX 40MG IV BID, OTBS ACHS, OTBS ACHS, HUMULIN R SLIDING SCALE, ISOSORBIDE 30MG BID. HIS HOME MEDICATIONS OF ALPRAZOLAM, ASPIRIN, LIPITOR, COREG, PLAVIX, TRICOR, NORCO, SYNTHROID, REGLAN, DILANTIN, ENTRESTO, AND VENLAFAXINE WERE RESUMED. CARDIOLOGY CONSULT. REPEAT AM LABS AND CHEST XRAY (2) Acute kidney injury superimposed on CKD Status: Acute (3) Hyperlipidemia Status: Chronic Qualifiers: Hyperlipidemia type: mixed hyperlipidemia Qualified Code(s): E78.2 - Mixed hyperlipidemia (4) CAD (coronary artery disease) Status: Chronic Qualifiers: Coronary Disease-Associated Artery/Lesion type: [place] artery [place] vs. 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
[2023-05-07 05:35] VITALS: BP 121/71; PULSE 74; RESP 18; TEMP 97.8; O2SAT 97
--- NOTE | 2023-05-07 05:37 | RAD ---
EXAM:CHEST, 1 VIEWHISTORY:CAD, HTN, DM, SEIZURES SX: CABG/VALVE, ORTHO ;COMPARISON:05/06/2023FINDINGS:The trachea is midline. The cardiac silhouette is mildly enlarged. Changes of prior CABG surgery.. The lungs are clear without focal infiltrate or effusion. The bony thorax is unremarkable.IMPRESSION:Mild cardiomegalyNo active cardiopulmonary diseaseTHIS IS AN ELECTRONICALLY VERIFIED FINAL REPORT05/07/2023 5:34 AM - Electronically signed by Manuel Peng MD
[2023-05-07 06:16] LABS: BASOPHILS # (AUTO) 0.1 X10^3/uL (0.0-0.1); BASOPHILS % (AUTO) 1.7 % (0.2-1.0); EOSINOPHILS # (AUTO) 0.4 x10^3/uL (0.0-0.2); EOSINOPHILS % (AUTO) 6.6 % (0.9-2.9); HEMATOCRIT 30.7 % (42.0-54.0); HEMOGLOBIN 10.1 g/dL (13.5-18.0); LYMPHOCYTES # (AUTO) 1.3 X10^3/uL (1.3-2.9); MEAN CORPUSCULAR HEMOGLOBIN 26.6 pg (27.0-34.0); MEAN CORPUSCULAR HGB CONC 32.8 g/dL (33.0-35.0); MEAN CORPUSCULAR VOLUME 81.1 fL (80.0-100.0); MEAN PLATELET VOLUME 10.6 fL (7.4-11.0); MONOCYTES # (AUTO) 0.8 x10^3/uL (0.3-0.8); MONOCYTES % (AUTO) 14.4 % (0.0-13.0); NEUTROPHILS # (AUTO) 3.1 x10^3/uL (2.2-4.8); NEUTROPHILS % (AUTO) 54.3 % (42.0-75.0); PLATELET COUNT 93 X10^3/uL (150.0-450.0); RED BLOOD COUNT 3.79 X10^6/uL (4.7-6.0); RED CELL DISTRIBUTION WIDTH 15.2 % (11.6-16.5); WHITE BLOOD COUNT 5.7 X10^3/uL (3.6-10.0)
[2023-05-07 06:42] LABS: ALANINE AMINOTRANSFERASE 17 Units/L (12-78); ALBUMIN 3.2 g/dL (3.4-5.0); ALKALINE PHOSPHATASE 31 Units/L (46-116); ASPARTATE AMINO TRANSFERASE 17 Units/L (15-37); BLOOD UREA NITROGEN 38 mg/dL (7-18); CALCIUM 8.4 mg/dL (8.5-10.1); CARBON DIOXIDE 26.4 mmol/L (21-32); CHLORIDE 101 mmol/L (98-107); CREATININE 2.17 mg/dL (0.70-1.30); GLUCOSE 106 mg/dL (65-99); POTASSIUM 4.2 mmol/L (3.5-5.1); SODIUM 137 mmol/L (136-145); TOTAL PROTEIN 6.6 g/dL (6.4-8.2); eGFR NON BLACK RACES 33 (>60)
[2023-05-07 07:15] LABS: PLATELET MORPHOLOGY COMMENT NORMAL (NORMAL); TARGET CELLS SLIGHT
[2023-05-07 07:16] LABS: HYPOCHROMASIA SLIGHT
== END 2023-05-07 07:50 | disposition short-term general hospital (02) | DRG 291 ==
LOC: MED/SURG 18:51 → ER 18:51 → MED/SURG 05-02 04:52
PROVIDERS: ADMIT Obstetrics & Gynecology Obstetrics; ATTEND Internal Medicine
DX: R77.8 Other specified abnormalities of plasma proteins; I25.10 Atherosclerotic heart disease of native coronary artery without angina pectoris; Z86.69 Personal history of other diseases of the nervous system and sense organs; R94.31 Abnormal electrocardiogram [ECG] [EKG]; J18.8 Other pneumonia, unspecified organism; I11.0 Hypertensive heart disease with heart failure; Z86.73 Personal history of transient ischemic attack (TIA), and cerebral infarction without residual deficits; R06.02 Shortness of breath; Z20.822 Contact with and (suspected) exposure to COVID-19; N17.8 Other acute kidney failure; Z79.01 Long term (current) use of anticoagulants; E78.2 Mixed hyperlipidemia; R79.82 Elevated C-reactive protein (CRP); N18.9 Chronic kidney disease, unspecified; E03.8 Other specified hypothyroidism; I50.9 Heart failure, unspecified; Z79.4 Long term (current) use of insulin; R53.1 Weakness; Z59.86 Financial insecurity; E11.65 Type 2 diabetes mellitus with hyperglycemia